=== PATIENT | male | born 1975 | race Caucasian/White ===

== ENCOUNTER 2017-05-09 19:44 | Emergency (ER) | payer OTHER ==
[~2017-05-09] VITALS: Ht 175.3 cm; Wt 71.8 kg
[~2017-05-09 19:44] MED LIST: BUPR8MIS SL; FLNIN NAE; IPRA1AER2 INH; LSN5 PO; NTRGSL/4 UT
[2017-05-09 19:46] VITALS: TEMP 36.6; Ht 175.3 cm; Wt 71.8 kg
[2017-05-09] MEDS ORDERED: DIPHTHERIA/TETANUS/PERTUSSIS 0.5 ML SYR/VIAL IM. ONE (20:00)
[2017-05-09] MEDS ORDERED: XYLOCAINE 1%/SOD BICARB 20 ML VIAL INFIL ONE (20:00)
[2017-05-09 20:38] VITALS: BP 137/100; PULSE 95; O2SAT 95
--- NOTE | 2017-05-11 14:18 | EMERGENCY ROOM VISIT NOTE ---
ED Visit Note First contact with patient: 19:50 CHIEF COMPLAINT: Wrist laceration HISTORY OF PRESENT ILLNESS: This 42-year-old male patient presents to the emergency department after cutting the outside of his right wrist about 2 hours ago. The patient states that he was taking apart a television when he cut himself on a piece of metal. The bleeding has stopped. Denies weakness or numbness of the hand or elbow. The patient rates the pain as dull and 6/10. The patient denies any other injuries. The patient's Tetanus shot is not up to date. REVIEW OF SYSTEMS: A 6 system review of systems was completed with positives and pertinent negatives listed in the HPI. ALLERGIES: Penicillin MEDICATIONS: See EMR PMH: See EMR SOCIAL HISTORY: Lives locally PHYSICAL EXAM: Vital Signs: Reviewed Nurse's notes, vital signs stable. GENERAL : White male, in no acute distress, well-developed, well-nourished. SKIN: There is a C-shaped 4.5 cm long laceration on the molar lateral aspect of the distal right wrist. The edges gape apart with traction. There is no foreign material in the wound and it looks clean. There is no bleeding. No deep structures such as tendons, bones, or significant blood vessels are seen in the base of the wound. Normal strength and movement of the hand and wrist. Capillary refill less than 2 seconds. Normal sensation to light and sharp touch. EMERGENCY DEPARTMENT COURSE: I examined the patient. Verbal consent was obtained to perform the procedure. Using sterile technique the wound was cleansed with Betadine. The area was sterilely draped. 4 ml of 1% buffered lidocaine was used to anesthetize the laceration on the right wrist. Once the patient was anesthetized, the wound was copiously irrigated under pressure with sterile saline. The wound was explored and was as described above. The laceration was repaired using 5 simple interrupted 4-0 nylon sutures with the wound edges being well approximated. The patient tolerated the procedure well. Hemostasis was achieved. The area was cleaned with sterile saline and dressed with bacitracin ointment and bandage. The patient was given Td immunization. The patient was discharged home in good condition. Of note, the patient requested narcotic pain medication several times for his injury. The patient has a long-standing history of drug abuse including IV heroin abuse. I explained to him that we would not be providing narcotic pain medication for straightforward lacerations, to which the patient replied "I'm going to buy some off the street then". I do not feel comfortable providing this patient narcotics, and feel that he should be placed on a no narcotic treatment plan. Problem List Medical Problems: (1) Anxiety State Nos Status: Chronic (2) Asthma, Unspecified Status: Chronic (3) Bipolar Disorder, Unspecified Status: Chronic (4) Chronic headache disorder Status: Chronic (5) Depressive Disorder Nec Status: Chronic (6) Head Injury, Nos Status: Chronic (7) Lumbago Status: Chronic (8) Polysubstance abuse Status: Resolved (9) Traumatic brain injury Status: Chronic (10) Traumatic Subdural Hem Status: Resolved Surgical Problems: (1) H/O craniotomy Status: Resolved Current/Historical Medications No Active Prescriptions or Reported Meds Allergies Coded Allergies: Penicillins (Verified Adverse Reaction, Unknown, nausea/vomiting, 05/09/17) Vital Signs Date Time Temp Pulse Resp B/P (MAP) Pulse Ox O2 Delivery O2 Flow Rate FiO2 05/09/17 20:38 95 18 137/100 95 05/09/17 19:46 36.6 98 20 138/93 95 Room Air Medications Administered Medications (Trade) Dose Ordered Sig/Krystyna Route Start Time Stop Time Status Last Admin Dose Admin Diphtheria/ Pertussis/Tetanus Vacc (Adacel Inj) 0.5 ml ONCE ONCE IM. 05/09/17 20:00 05/09/17 20:01 DC 05/09/17 20:00 0.5 ML Departure Information Impression Primary Impression: Laceration of wrist, right Dispostion Home / Self-Care Condition GOOD Prescriptions No Active Prescriptions or Reported Meds Referrals Sara Valverde.P. No Doctor, Assigned (PCP) Forms HOME CARE DOCUMENTATION FORM, IMPORTANT VISIT INFORMATION Patient Instructions My [facility] Additional Instructions Keep wound clean and dry. Do not allow any crusting or dried blood to accumulate on sutures. If this occurs, use a mild soap/water on a Q-tip to clean the wound. Do not use Peroxide to clean the wound as this can delay healing Use an antibiotic ointment like Bacitracin for 3-4 days, then let wound dry. You may bathe and shower as normal, but DO NOT SOAK the wound. Suture removal in about 12-14 days with your Family Doctor or in the ER. Return sooner for any signs of infection, increasing redness, swelling, or drainage.
== END 2017-05-09 20:40 | disposition home or self-care (01) ==
LOC: C.EDB 19:48 → C.EDD 20:40
DX: S61.511A Laceration without foreign body of right wrist, initial encounter (principal); W45.8XXA Other foreign body or object entering through skin, initial encounter; Y93.89 Activity, other specified; Y99.8 Other external cause status; J45.909 Unspecified asthma, uncomplicated; Z86.59 Personal history of other mental and behavioral disorders; Z87.820 Personal history of traumatic brain injury; Z98.890 Other specified postprocedural states; Z23 Encounter for immunization

== ENCOUNTER 2019-02-26 10:36 | Inpatient (IN) ==
--- OUTSIDE RECORDS SUMMARY | 2019-02-26 10:40 | External Medical Summary | Continuity of Care Document ---
:1975 Author Name Kojo Jones Address Unavailable Unavailable , Care Team Providers Name Role Phone Alf Anders III, M.D. Unavailable [email or web address] Unavailable [email or web address] Unavailable [email or web address] Thea Perez [email or web address] Unavailable [email or web address] Ballard M.D. Unavailable [email or web address] Herbert RODRIGUEZ M.D. Unavailable Unavailable Unavailable Unavailable Unavailable Problems Chronic kidney disease, stage II (mild) (585.2) (N18.2) Chronic rhinitis (472.0) (J31.0) TBI (traumatic brain injury) (854.00) (S06.9X9A) Chronic daily headache (784.0) (R51) BPH (benign prostatic hyperplasia) (600.00) (N40.0) Lymphadenopathy (785.6) (R59.1) Chronic laryngitis (476.0) (J37.0) Decreased urine volume (788.5) (R34) Subdural hematoma, post-traumatic (852.20) (S06.5X9A) Psychological disorder (300.9) (F99) Calculus of kidney (592.0) (N20.0) Hypertension (401.9) (I10) Emphysema lung (492.8) (J43.9) Congestive heart failure (428.0) (I50.9) Bronchitis (490) (J40) Arthritis (716.90) (M19.90) Drug dependence (304.90) (F19.20) Heart disease (429.9) (I51.9) Migraine headache (346.90) (G43.909) Agitation (307.9) (R45.1) ROLLY (acute kidney injury) (584.9) (N17.9) Acute respiratory failure (518.81) (J96.00) SAH (subarachnoid hemorrhage) (430) (I60.9) Dental caries (521.00) (K02.9) Deviated nasal septum (470) (J34.2) Nasal bone fx-closed (802.0) (S02.2XXA) Bipolar disorder (296.80) (F31.9) Allergies and Adverse Reactions Nortripytline HCl CAPS (Adverse Event) R eaction: Nausea, Vomiting Penicillins (Allergy) Medications Lisinopril 10 MG Oral Tablet; TAKE 1 TABLET DAILY. Refills: 0 Methadone HCl - 10 MG/ML Oral Concentrate; TAKE DIRECTED 130mg qd Refills: 0 Pantoprazole Sodium 40 MG Oral Tablet De layed Release; Take 1 tablet twice daily Karen Ballard Start: 09-Feb-2015 Quantity: 60 Refills: 9 Nystatin [id number] UNIT/ML Mouth/Throat Iqra pension; SWISH AND SWALLOW 5ML 4 TIMES DAILY. CANDI Shin Start: 09-Feb-2015 Quantity: 1 473 ML Bottle Refills: 0 ZOLMitriptan 5 MG Oral Tablet; TAKE 1 TA BLET AT ONSET OF HEADACHE, MAY REPEAT ONCE IN 2-4 HOURS. LIMIT TO 3 DAYS PER WEEK. CANDI Perez Start: 28-Mar-2015 Quantity: 9 Refills: 3 Xutfkdycib-TIRQ-Zxstniip 50-325-40 MG Or al Tablet; TAKE 1 OR 2 TABLETS BY MOUTH TWICE DAILY NEEDED FOR HEADACHE, NO MORE THAN 3 DAYS PER WEEK. Karen Anders III Start: 06-Mar-2015 Quantity: 20 Refills: 1 Topiramate 50 MG Oral Tablet; TAKE 2 TABLETS TWICE DAILY CANDI Singh Start: 06-Mar-2015 Quantity: 120 Refills: 3 Nitrostat 0.4 MG Sublingual Tablet Subli ngual; DISSOLVE 1 TABLET UNDER THE TONGUE NEEDED FOR CHEST PAIN. 25 Tablet Sublingual Bottle Quantity: 1 Refills: 11 Flomax 0.4 MG Oral Capsule; TAKE 1 CAPSULE Bedtime Refills: 0 Procedures History of Knee Surgery Status: Complete d History of Brain Surgery Status: Complet ed Immunizations Immunizations not documented Family History Mother No pertinent family history (V43.89) (Z78.9) Status: Active Social History - Smoking Status Current every day smoker Former smoker Plan of Treatment Planned Observations Planned Goals not documented Results No Known Results Results not documented Encounters Appointment; Telly Phoenix CRNP 22-Nov-2018 12:00 Encounter Diagnosis: Problem not documented
[2019-02-26] MEDS ORDERED: cephALEXin 250 MG CAP PO ONE (11:23)
--- NOTE | 2019-02-26 11:39 | Emergency Department Note ---
ED Visit Note I assisted Dr. Crook in the care of this patient. Please refer to his note for additional details. . Resident Activity Tracking Resident Involvement: Resident Care Provided Care Provided: Adult ED
[2019-02-26] MEDS ORDERED: XYLOCAINE 1%/SOD BICARB 20 ML VIAL INFIL ONE (11:55)
--- NOTE | 2019-02-26 12:03 | CT Scan Report ---
HEAD CT NONCONTRAST CT DOSE: 537.48 mGy.cm HISTORY: head injury TECHNIQUE: Multiaxial CT images of the head were performed without the use of intravenous contrast. A utomated exposure control was utilized for this study. A dose lowering technique was utilized adheri ng to the principles of ALARA. Comparison: Head CT 03/28/2013. Findings: The paranasal sinuses and mastoid air cells are clear. Focal right anterolateral skull frac ture along the coronal suture. This is in the region of the middle meningeal artery. This fracture de monstrates up to 2 mm of depression. There is associated mild scalp swelling at this location. No int racranial hemorrhage identified this time. There is no mass, midline shift, or acute infarct. The korey tricles and sulci are within normal limits. Impression: Slightly depressed right anterolateral skull fracture at the level of the coronal suture and middle m eningeal artery. No intracranial hemorrhage identified at this time. However, [address] f ollow-up is recommended given the location of the fracture. Electronically signed by: Ed Quinn M.D. 02/26/2019 12:02 PM
--- NOTE | 2019-02-26 14:39 | Emergency Department Note ---
Entered by Lily Slater acting as a scribe for History of Present Illness General Chief complaint: Laceration/Cut (Non-Suture) Stated complaint: HUGE LACERATION/GASH TO RT SIDE OF HEAD, FELL Time Seen by Provider: 02/26/19 10:55 Source: patient History of Present Illness Onset (ago): day(s) 3 Location: head Pain Consistency: + other (episode) Maximum Pain Intensity: 0 Quality: + other (laceration) Relieved By: not by other (cleaning out wound, lotion) The patient is a 44 year old male that is presenting to the Emergency Room with complaints of an episode of a laceration following a fall 3 days ago. The patient states that he bounced his head off some rocks. He denies using any alcohol or drugs prior to the episode. He states that he is unsure why he fell. He notes that he was unable to come to the ED right away because he did not have a ride here. He reports that he tried to treat the laceration with lotion and notes that he has been trying to scrub the area. He notes that the area was swollen following the fall. He states that he has no other complaints at this time. The patient is not answering all questions. His history is not forthcoming when asked about when the event occurred or what was happening when it occurred. Home Medications Home Medications Medication Instructions Recorded Confirmed Type naproxen sodium [Aleve] 220 mg PO Q12H PRN 02/26/19 02/26/19 History Allergies Allergy/AdvReac Type Severity Reaction Status Date / Time Penicillins AdvReac Unknown nausea/vomi Verified 02/26/19 11:22 ting Past Med/Surg History Medical History Mass of right side of neck (Acute) Methadone dependence (Acute) Family History Other No significant family history Social History marital status: Single Current Living Situation: Alone current occupational status: unemployed Feels Safe at Home: Yes Smoking Status: Current every day smoker Review of Systems See HPI for pertinent positives & negatives. and A total of 10 systems reviewed and were otherwise negative Physical Exam Vital Signs Vital Signs - 24 hr 02/26/19 10:40 02/26/19 12:37 02/26/19 13:24 Temperature 36.4 C L Temperature Source Oral Sepsis Recent Fever Within 48 Hours No Sepsis Action Taken by Nursing No Action Required Pulse Rate 114 H Pulse Rate [Right Finger] 99 H 101 H Respiratory Rate 20 20 20 Respiratory Effort / Characteristics Non-Labored Non-Labored Non-Labored Respiratory Depth Normal Normal Normal Respiratory Pattern Regular Regular Blood Pressure 108/62 Blood Pressure [Right Arm] 102/66 106/67 Blood Pressure Mean 77 Blood Pressure Mean [Right Arm] 78 80 Blood Pressure Position [Right Arm] Sitting Sitting Pulse Oximetry 98 98 98 Oxygen Delivery Method Room Air Room Air Room Air CONSTITUTIONAL/VITAL SIGNS: Reviewed / noted above. GENERAL: Non-toxic in appearance. INTEGUMENTARY: Warm, dry, and Owen. HEAD: Normocephalic. 14cm laceration to the right scalp, gaping approximately 3 cm with old blood. EYES: without scleral icterus or trauma. ENT/OROPHARYNX: clear and moist. LYMPHADENOPATHY/NECK: Is supple without lymphadenopathy or meningismus. RESPIRATORY: Lungs clear and equal. CARDIOVASCULAR: Regular rate and rhythm. GI/ABDOMEN: Soft and nontender. No organomegaly or pulsatile mass. No rebound or guarding. Normal bowel sounds. EXTREMITIES: Warm and well perfused. BACK: No CVA tenderness. NEUROLOGICAL: Intact without focal deficits. PSYCHIATRIC: normal affect. MUSCULOSKELETAL: Normally developed with good muscle tone. Course 1105:The patient was evaluated in room A09B. A complete history and physical examination was performed. 1230: Updated the patient on his current imaging results. I discussed the patients options for treatment at this time. The patient declines transfer to another facility. 1232: I discussed the patients case with Dr. Valverde, [facility], who recommended that I speak with a neurosurgeon. 1237: I discussed the patients case with Dr. Domingo, [facility] neurosurgery, who recommended contacting a plastic surgeon to evaluate the patient. 1243: I discussed the patients case with Dr. Null, [facility], who recommended the patient be taken to the operating room for further care of the fracture and laceration. 1250: I updated the patient on his treatment plan. He is amenable to the proposed treatment. The patient will be evaluated for surgery and further care. Consultations Consultation #1: I discussed the patients case with Dr. Valverde, [facility], who recommended that I speak with a neurosurgeon. Time: 12:32 Consultation #2: I discussed the patients case with Dr. Domingo, [facility] neurosurgery, who recommended contacting a plastic surgeon to evaluate the patient. Time: 12:37 Consultation #3: I discussed the patients case with Dr. Null, [facility], who recommended the patient be taken to the operating room for further care of the fracture and laceration. Time: 12:43 Administered Medications Discontinued Medications Cephalexin HCl (Keflex) 500 mg PO NOW ONE Stop: 02/26/19 11:24 Last Admin: 02/26/19 11:49 Dose: 500 mg Documented by: [id number] Lidocaine HCl (Buffered Lidocaine 1%) 20 ml INFIL NOW ONE Stop: 02/26/19 11:56 Last Admin: 02/26/19 12:01 Dose: 20 ml Documented by: [id number] Medical Decision Making Differential Diagnosis Differential includes acute cardiac dysrhythmia, microinfarction, CVA, TIA, dehydration, anemia, electrolyte disturbance, seizure, trauma, intracranial bleeding, acute vascular catastrophe, thoracic aortic dissection, PE, abdominal aortic aneurysm rupture. Medical Records Attestation: I reviewed the patient's medical records. Home Medications Current Medication List: was personally reviewed by me Imaging Data Radiologist's Impression: Radiology results as stated below per my review and the radiologist's interpretation: HEAD CT NONCONTRAST CT DOSE: 537.48 mGy.cm HISTORY: head injury TECHNIQUE: Multiaxial CT images of the head were performed without the use of intravenous contrast. Automated exposure control was utilized for this study. A dose lowering technique was utilized adhering to the principles of ALARA. Comparison: Head CT 03/28/2013. Findings: The paranasal sinuses and mastoid air cells are clear. Focal right anterolateral skull fracture along the coronal suture. This is in the region of the middle meningeal artery. This fracture demonstrates up to 2 mm of depression. There is associated mild scalp swelling at this location. No intracranial hemorrhage identified this time. There is no mass, midline shift, or acute infarct. The ventricles and sulci are within normal limits. Impression: Slightly depressed right anterolateral skull fracture at the level of the coronal suture and middle meningeal artery. No intracranial hemorrhage identified at this time. However, 12 [address] follow-up is recommended given the location of the fracture. Electronically signed by: dE Quinn M.D. 02/26/2019 12:02 PM Blood Pressure Blood Pressure Findings: Normal blood pressure MDM Narrative This is a 44-year-old male who presents to the ED with a chief complaint of a laceration to his right head. The patient states that his injury occurred when he fell on some rocks a few days ago. The patient is not forthcoming with the details of his injury. He does admit to using drugs. The patient otherwise denies any other symptoms. He came in to have it evaluated. He states that he did not have a ride to come in earlier. The patient's vital signs are stable. He is afebrile. His physical exam reveals a large laceration to the right temporal/parietal area and also the wound appears to be subacute. There is no active bleeding. There is dried blood in the area. A CT scan of the brain reveals a 2.4 mm depressed skull fracture. I spoke with both trauma surgery Dr. Valverde at [facility] as well as neurosurgeon, Dr. Edwards at [facility]. Neither physician felt the patient required transfer and that this could be fixed locally. There was no need for skull fracture repair. This just needs a surgeon to fix the wound, according to the neurosurgeon. He recommended the person, on-call for plastic surgery. The patient will be seen by Dr. Null for further evaluation and care. Impression & Plan Scalp laceration, Skull fracture Discharge Plan Visit Data Chief Complaint: Laceration/Cut (Non-Suture) Stated Complaint: HUGE LACERATION/GASH TO RT SIDE OF HEAD, FELL ED Provider: Rick Crook ED Midlevel Provider: Jc June Discharge Problem: Scalp laceration, Skull fracture Patient Disposition: Being Evaluated by Surgeon Forms Stand Alone Forms: [employer] Prescriptions Prescriptions: No Action naproxen sodium [Aleve] 220 mg Tablet 220 mg PO Q12H PRN (Reason: Headache) RF: 0 Referrals Referrals: PCP,NO [Primary Care Provider] - Discharge Problem: Scalp laceration Qualifiers: Encounter type: initial encounter Qualified Code(s): S01.01XA - Laceration without foreign body of scalp, initial encounter Skull fracture Qualifiers: Encounter type: initial encounter Skull bone/location: parietal bone Fracture type: closed Qualified Code(s): S02.0XXA - Fracture of vault of skull, initial encounter for closed fracture The scribe's documentation has been prepared under my direction and personally reviewed by me in its entirety. I confirm that the note above accurately reflects all work, treatment, procedures, and medical decision making performed by me.
--- NOTE | 2019-02-26 15:05 | History & Physical Report ---
Date of Service February 26, 2019 History of Present Illness Primary Care Provider: NO PCP Allergies Allergy/AdvReac Type Severity Reaction Status Date / Time Penicillins AdvReac Unknown nausea/vomi Verified 02/26/19 11:22 ting Home Medications Home Medications Medication Instructions Recorded Confirmed Type naproxen sodium [Aleve] 220 mg PO Q12H PRN 02/26/19 02/26/19 History Past Med/Surg History Medical History Mass of right side of neck (Acute) Methadone dependence (Acute) Family History Other No significant family history Social History marital status: Single Current Living Situation: Alone current occupational status: unemployed Feels Safe at Home: Yes Smoking Status: Current every day smoker Review of Systems Review of Systems: Unobtainable due to cognitive status Physical Exam Physical Exam: Poor historian--states he slipped and hit temporal area --at least a 5-6 inch laceration (deep) it has devital tissue on the wound line. pus is developing under the raised flaps. Exposed periostium noted, I will need to debride the flap, control bleeding inspect the bone and close. This will be done in OR with GA given the extent of the wound. The CT was evaluated--see report=depressed fractures noted with innner table fx as well, no air or blood with in skull--It was suggested that we get another CT in 12-24 hr--I will order CT pre-op in AM. ED physician discussed with Neuro at [facility]--no need for transfer suggested repeat CT in 12-24 hrs. PLAN-I will admit, Get hospitalist consult to help with management and IV`s order CT in AM, NPO midnight, antibiotics, labs monitoring, Patient is suspected for drug use we will obtain drug screen. Discussed case with Ms Harden and Anesthesia dept. Constitutional: + thin, + behavioral limitations, + disheveled and + lethargic Eyes: PERRL, conjunctivae normal, anicteric sclerae ENMT: external ear and nose normal, oropharynx normal Nose: + external nose abnormality and + septum abnormality Mouth: + dry oral mucous membranes Mallampati Class: II Neck: trachea midline, no thyromegaly normal visual inspection and trachea midline Respiratory: normal respiratory effort, lungs clear to auscultation Auscultation: lungs clear to auscultation bilaterally Cardiovascular: RRR, no murmur, no edema Rate/Rhythm: regular rate Musculoskeletal: no cyanosis or clubbing, extremities motor strength 5/5 Head/Neck/Chest: + head abnormal to inspection and + scalp tenderness Spine: normal cervical lordosis Extremities: extremities normal to inspection Gait: normal gait Shoulder: + shoulder abnormal to inspection Hip: + hip abnormal to inpsection Knee: + knee abnormal to inspection Skin: + wound Trauma: + evidence of skin trauma, + laceration, + hematoma and + periorbital ecchymosis Neurologic: CN's II-XI intact bilaterally and + confused Speech / Cognition: + abnormal cognition Psychiatric: Apperance: + disheveled Eye Contact: + fair eye contact Affect: + depressed affect Mood: + depressed mood Estimated Intelligence: + below average estimated intelligence Judgement: + poor judgement Results & Data Vital Signs (Past 12 Hours) Vital Signs Temp Pulse Pulse Resp BP BP Pulse Ox 02/26/19 14:47 101 H 20 103/61 98 02/26/19 14:00 101 H 20 98 02/26/19 13:24 101 H 20 106/67 98 02/26/19 12:37 99 H 20 102/66 98 02/26/19 10:40 36.4 C L 114 H 20 108/62 98
--- NOTE | 2019-02-26 15:23 | Consultation ---
Date of Consultation February 26, 2019 Assessment & Plan (1) Scalp laceration: Scalp Laceration Skull Fracture Traumatic head Injury Secondary to fall as per patient CT Head:Slightly depressed right anterolateral skull fracture at the level of the coronal suture and middle meningeal artery. No intracranial hemorrhage identified at this time. However, 12 to [address] follow-up is recommended given the location of the fracture. --Planned for wound debridement tomorrow Blood/Wound Cx --Start on Vancomycin Wound Care, DVT Px, Pain control as per Primary Team Agree with IV fluids Altered Mental Status H/O substance abuse as per records CT head as above Neuro Checks 1:1 Obtain Urine drug screen Avoid Narcotic meds as able H/O Asthma, bipolar disorder As per records Continue home inhaler Nebs PRN Please confirm patient's home meds when more awake Tobacco use disorder Fruit Cutter to quit smoking DVT Px: SCDs for now Code Status: Full Code Disposition: As per Primary Team Dr. Fidel Hsieh will resume patient's care starting 02/27/19. Thank you for the consultation. Please call with any questions History of Present Illness Requesting Physician: Dr.Barry Null Reason for Consultation: Management of antibiotics Attending Physician: Dr.Barry Null History of Present Illness Patient is a 44-year-old male with history of asthma, bipolar disorder, tobacco use disorder, traumatic brain injury as per records and other problems was admitted by Dr. Herb Null for management of scalp laceration of the temporal region. Patient is lethargic while in ED and was unable to provide any much history currently. As per the records, patient had slipped and hit his temporal region on resulting in 5 to 6 inch deep laceration of the scalp at the temporal region. Patient complains of pain at the site of scalp laceration. Denies any chest pain, shortness of breath, dizziness, nausea vomiting and abdominal pain. Patient's CT head showed slightly depressed right anterolateral skull fracture at the level of the coronal suture and middle meningeal artery. No intracranial hemorrhage was noted. Also no mass, midline shift or acute infarct noted. ER physician Dr. Crook discussed with trauma surgery at [facility] as well as neurosurgeon, Dr. Edwards at [facility], with the physicians felt that the patient does not need any neurosurgical intervention and needs local wound care. Patient is planned for wound debridement tomorrow. Allergies Allergy/AdvReac Type Severity Reaction Status Date / Time Penicillins AdvReac Unknown nausea/vomi Verified 02/26/19 11:22 ting Home Medications Home Medications Medication Instructions Recorded Confirmed Type budesonide-formoterol [Symbicort] 2 puff INHALATION BID 02/26/19 02/26/19 History naproxen sodium [Aleve] 220 mg PO Q12H PRN 02/26/19 02/26/19 History Patient History Medical History Mass of right side of neck (Acute) Methadone dependence (Acute) Asthma Bipolar disorder Family History Other No significant family history Social History Preferred Language: Chinese Communication Ability: Impaired Communication Ability Comment: Patient states blurred vision makes it hard for him to read. Logistics Specialist Required: No Beliefs That Will Affect Care: None marital status: Single Current Living Situation: Alone current occupational status: unemployed Other Information That Helps Us Care for You: No Feels Safe at Home: No Is there a partner from a previous relationship who is making you feel unsafe now?: No Any Concerns about Your Family Situation: No Would You Like to Speak to Someone About Your Situation: No Safety Concerns: Feels Safe At This Time Smoking Status: Current some day smoker Tobacco Type: cigarettes Do You Dip or Chew Tobacco: Yes Hx Alcohol Use: Yes Alcohol type: hard liquor Hx Substance Use: Yes substance use type: marijuana Substance Use Type Other:: Patient states, "Whatever I can get my hands on." Last Used Substance: Unknown Review of Systems Review of Systems: Difficult to obtain as patient is lethargic Physical Exam Physical Exam: Physical Exam: Vitals signs as noted above General Appearance:Moderately built and nourished, Lethargic, no apparent distress Head: normocephalic, traumatic, +Scalp laceration Eyes: normal inspection, EOMI Neck: supple, Trachea midline Respiratory/Chest: Normal breath sounds, CTA Cardiovascular: S1, S2, No murmur Abdomen/GI:Soft, Non tender, Bowel sounds present Extremities/Musculoskelatal:normal inspection, no edema Neurologic/Psych:lethargic, grossly no focal neurological deficits Skin: normal color, warm Results & Data Vital Signs (Past 12 Hours) Vital Signs Temp Pulse Pulse Resp BP BP Pulse Ox 02/26/19 14:47 101 H 20 103/61 98 02/26/19 14:00 101 H 20 98 02/26/19 13:24 101 H 20 106/67 98 02/26/19 12:37 99 H 20 102/66 98 02/26/19 10:40 36.4 C L 114 H 20 108/62 98 Laboratory Results BMP 02/26/19 18:47 Creatinine 1.[address] Head: Slightly depressed right anterolateral skull fracture at the level of the coronal suture and middle meningeal artery. No intracranial hemorrhage identified at this time. However, 12 to [address] follow-up is recommended given the location of the fracture. (1) Scalp laceration Encounter type: initial encounter Qualified Code(s): S01.01XA - Laceration without foreign body of scalp, initial encounter
--- NOTE | 2019-02-26 15:36 | Surgery Progress Note ---
Date of Service Please insure that the CT scan is completed early Thursday AM -before surgery Consult Hospitalist (done) NPO at midnight --OR tomorrow AM. February 26, 2019 Results & Data Vital Signs (Past 12 Hours) Vital Signs Temp Pulse Pulse Resp BP BP Pulse Ox 02/26/19 14:47 101 H 20 103/61 98 02/26/19 14:00 101 H 20 98 02/26/19 13:24 101 H 20 106/67 98 02/26/19 12:37 99 H 20 102/66 98 02/26/19 10:40 36.4 C L 114 H 20 108/62 98
[2019-02-26] MEDS ORDERED: VANCOMYCIN CONSULT ACTIVE PRN (17:43)
[2019-02-26] MEDS ORDERED: VANCOMYCIN HCL 1,500 MG in SODIUM CHLORIDE 0.9% 500 ML IV ONE (17:45)
[2019-02-26] MEDS: LACTATED RINGER'S 1,000 ML IV SCH (17:49)
[2019-02-26 19:20] LABS: Creatinine Clr Calc Pharmacy 79.3 ml/min; Est GFR (African American) 89.2
[2019-02-26] MEDS ORDERED: LEVALBUTEROL HCL 0.63 MG/3 ML NEB NEB PRN (19:50)
[2019-02-26] MEDS ORDERED: POLYETHYLENE (MIRALAX) 17 GM PACK PO PRN (19:57)
[2019-02-26] MEDS ORDERED: ONDANSETRON INJ 2 MG/ML 2 ML VIAL IV PRN (19:57)
[2019-02-26] MEDS ORDERED: PNEUMOCOCCAL POLYSACCHARIDES 25 MCG/0.5 ML VIAL/SYR IM ONE (20:45)
[2019-02-26] MEDS ORDERED: PNEUMOCOCCAL ADMINISTRATION CHARGE ONE (20:45)
[2019-02-26] MEDS: BUDESONIDE/FORMOTEROL FUMARATE 160/4.5 60 PUFFS/INHALER INH SCH (22:06)
--- NOTE | 2019-02-26 22:14 | Pharmacy Report ---
Pharmacy Abx Initial Consult - Date of Service February 26, 2019 - Pharmacy Dosing Scope Date of Consult: 7-6 Consultation requested by: Dr. Hair Pharmacy is consulted to initiate vancomycin dosing therapy, order appropriate labs and adjust drug dose/frequency. - Subjective The patient is a 44 year old M admitted on 02/26/19 15:23. - Objective Height: 5 ft 9.02 in Weight: 68.4 kg Lab Results (24hrs): Laboratory Tests (24 Hours) 02/26/19 18:47 Creatinine 1.15 Est Cr Clr Drug Dosing 79.3 Micro Results: 02/26/19 18:45 Gram Stain - Pending Scalp Wound Culture - Pending 02/26/19 17:18 Aerobic Blood Culture - Pending Blood Anaerobic Blood Culture - Pending 02/26/19 17:42 Aerobic Blood Culture - Pending Blood Anaerobic Blood Culture - Pending - Assessment & Plan Assessment 44 year old M with traumatic head injury. Planned for wound debridement tomorrow. Started on vancomycin for concern of infection. Vancomycin: * 1500 mg x 1 given as loading dose (~22 mg/kg) * Will start vancomycin 1250 mg (~18 mg/kg) q 12 hrs to achieve estimated trough ~15-20 mcg/ml * Estimated kinetics: t1/2~10 hr, ke~0.069 hr-1, CrCl ~79 ml/min * Will follow and order trough level if continued >48 hrs Pharmacy will continue to follow and will adjust dose/frequency as necessary. Thank you.
[2019-02-27] MEDS: ACETAMINOPHEN 1,000 MG/100 ML VIAL IV PRN ×2 (00:27→20:20)
[2019-02-27 02:16] LABS: Amphetamines+Metham, Urine Pos (Neg); Barbiturates, Urine Neg (Neg); Benzodiazepine, Urine Neg (Neg); Cocaine, Urine Neg (Neg); MDMA (Ecstacy), Urine Pos (Neg); Methadone, Urine Neg (Neg); Opiate, Urine Neg (Neg); Phencyclidine, Urine Neg (Neg)
[2019-02-27 05:53] LABS: Basophils # (auto) 0.03 K/uL (0-0.2); Basophils % (auto) 0.5 %; Eosinophils # (auto) 0.39 K/uL (0-0.5); Eosinophils % (auto) 6.9 %; Hematocrit (blood only) 39.8 % (42-52); Hemoglobin 13.9 g/dL (14.0-18.0); Immature Granulocytes # (auto) 0.01 K/uL (0.00-0.02); Immature Granulocytes % (auto) 0.2 %; Lymphocytes # (auto) 2.57 K/uL (1.2-3.4); Lymphocytes % (auto) 45.5 %; Mean Corpuscular Hgb Conc 34.9 g/dL (32-36); Mean Corpuscular Volume 89.4 fL (80-100); Mean Platelet Volume 11.7 fL (7.4-10.4); Monocytes # (auto) 0.46 K/uL (0.11-0.59); Monocytes % (auto) 8.1 %; Neutrophils # (auto) 2.19 K/uL (1.4-6.5); Neutrophils % (auto) 38.8 %; Platelet Count 231 K/uL (130-400); RDW Coefficient of Variation 13.9 % (11.5-14.5); RDW Standard Deviation 46.1 fL (36.4-46.3); Red Blood Count 4.45 M/uL (4.7-6.1); White Blood Count 5.65 K/uL (4.8-10.8)
[2019-02-27 06:24] LABS: Albumin Level 3.5 gm/dl (3.4-5.0); Calcium 8.6 mg/dl (8.5-10.1); Creatinine Clr Calc Pharmacy 87.7 ml/min; Est GFR (African American) 100.7; Est GFR (Non-African American) 86.9; Magnesium 2.2 mg/dl (1.8-2.4); Potassium 3.8 mmol/L (3.5-5.1)
[2019-02-27 06:30] LABS: Albumin Globulin Ratio 1.1 (0.9-2); Bilirubin,Total 0.7 mg/dl (0.2-1); Globulin 3.3 gm/dl (2.5-4.0); Total Protein 6.8 gm/dl (6.4-8.2)
--- NOTE | 2019-02-27 07:13 | CT Scan Report ---
CT head/brain wo con CLINICAL HISTORY: 44 years-old Male with need 12-[address] as suggested for f/up. Acute right -sided head injury with right anterolateral skull fracture at the level of the coronal suture TECHNIQUE: Multiple axial CT images of the head were obtained without contrast. A dose lowering tech nique was utilized adhering to the principles of ALARA. CT DOSE: 537.48 mGy.cm COMPARISON: Head CT 02/26/2019.. FINDINGS: No acute intracranial hemorrhage, midline shift, intracranial mass, hydrocephalus, territorial ischem ia or abnormal extra-axial collection. There is an acute minimally depressed fracture about the right anterolateral skull at the level of th e coronal suture with 2 mm depression and mild comminution, unchanged. Mild adjacent subcutaneous mushtaq ma near the fracture site. Mild mucosal thickening about the ethmoid air cells. Mastoid air cells ar e clear. Possible punctate foreign bodies are noted about the scalp adjacent to the laceration. IMPRESSION: Acute mildly depressed and comminuted fracture of the right anterolateral skull at the l evel of the coronal suture redemonstrated. No acute intracranial hemorrhage identified. The above report was generated using voice recognition software. It may contain grammatical, syntax o r spelling errors. Electronically signed by: Humberto Morfin M.D. 02/27/2019 7:12 AM
[2019-02-27] MEDS: KETOROLAC TROMETHAMINE 15 MG/ML VIAL IV PRN ×2 (07:16→15:56)
[2019-02-27] MEDS ORDERED: SUCCINYLCHOLINE CHLORIDE 20 MG/ML 10 ML VIAL ONE (07:20)
[2019-02-27] MEDS ORDERED: LIDOCAINE HCL 2% 2 ML VIAL/AMP(20MG/ML) INFIL ONE (07:20)
[2019-02-27] MEDS ORDERED: ONDANSETRON INJ 2 MG/ML 2 ML VIAL ONE (07:20)
[2019-02-27] MEDS ORDERED: PROPOFOL IV EMULSION 10 MG/ML 20 ML VIAL IV ONE (07:20)
[2019-02-27] MEDS ORDERED: fentaNYL citrate 100 MCG/2 ML VIAL ONE (07:30)
[2019-02-27] MEDS ORDERED: ePHEDrine sulfate 50 MG/ML AMP IV PRN (07:34)
[2019-02-27] MEDS ORDERED: ONDANSETRON INJ 2 MG/ML 2 ML VIAL IV PRN (07:34)
[2019-02-27] MEDS ORDERED: HYDROmorphone INJ 1 MG/ML SYRINGE IV PRN (07:34)
[2019-02-27] MEDS ORDERED: ATROPINE SULFATE 0.1 MG/ML 10ML SYR IV PRN (07:34)
[2019-02-27] MEDS ORDERED: fentaNYL citrate 100 MCG/2 ML VIAL IV PRN (07:34)
--- NOTE | 2019-02-27 07:45 | Anesthesiology Consultation ---
Date of Service February 27, 2019 Assessment & Plan (1) Encounter for pre-operative examination: Chart Review Chart Review: Acceptable Risk for Surgery and Patient NOT seen in Pre Admission Testing Consults Requested none History Surgery Operation Date: 02/27/19 09:30 Proposed Procedures p Suturing Facial Lacerations - Herb Null, DMD Height/Weight Height: 5 ft 9.02 in Weight: 68.4 kg Allergies Allergy/AdvReac Type Severity Reaction Status Date / Time Penicillins AdvReac Unknown nausea/vomi Verified 02/26/19 11:22 ting Medications Home Medications Medication Instructions Recorded Confirmed Last Taken budesonide-formoterol [Symbicort] 2 puff INHALATION BID 02/26/19 02/26/19 Unknown naproxen sodium [Aleve] 220 mg PO Q12H PRN 02/26/19 02/26/19 02/26/19 Active Medications Generic Name Dose Route Start Last Admin Trade Name Freq PRN Reason Stop Dose Admin Budesonide/Formoterol Fumarate 2 puffs 02/26/19 21:00 02/26/19 22:06 Symbicort 160mcg/4.5mcg INH 03/28/19 20:59 2 puffs BID NEELIMA Administration Lactated Ringer's 1,000 mls @ 100 mls/hr 02/26/19 15:30 02/26/19 22:15 Lr IV 03/28/19 15:29 100 mls/hr .Q10H NEELIMA Infusion Acetaminophen 1,000 mg in 100 mls @ 400 mls/hr 02/26/19 19:56 02/27/19 00:42 Ofirmev IV 03/28/19 19:55 Infused Q8H PRN Infusion Pain or Fever Ketorolac Tromethamine 15 mg 02/27/19 06:37 02/27/19 07:16 Toradol IV 03/04/19 06:36 15 mg Q6H PRN Administration Pain NPO Date Last Intake of Fluids: 02/26/19 Time Last Intake of Fluids: 23:59 Date Last Intake of Solids: 02/26/19 Time Last Intake of Solids: 23:59 Past Medical History Medical History Mass of right side of neck (Acute) Methadone dependence (Acute) Asthma Bipolar disorder Exercise / Class Metabolic Activity II 4-5 Yardwork/Stairs/Walk up hill Past Family History Family History Other No significant family history Past Anesthesia History No Hx of Anesthesia Complications and No Family Hx of Anesthesia Complications History of PONV No Hx of PONV and No Hx of Motion Sickness Social History Smoking Status: Current some day smoker tobacco type: cigarettes Do You Dip or Chew Tobacco: Yes Hx Alcohol Use: Yes Alcohol type: hard liquor alcohol intake frequency: a few times a month Hx Substance Use: Yes substance use type: marijuana Substance Use Type Other:: Patient states, "Whatever I can get my hands on." Last Used Substance: Unknown Physical Exam Vital Signs Last Vital Signs Temp 36.5 C 02/27/19 07:08 Pulse 70 02/27/19 07:08 Resp 18 02/27/19 07:08 BP 124/79 02/27/19 07:08 Pulse Ox 99 02/27/19 07:08 Testing Laboratory Results 02/27/19 05:15 02/27/19 05:15 02/26/19 18:45 Gram Stain - Final Scalp Other Testing CT head/brain wo con 02/27/2019 CLINICAL HISTORY: 44 years-old Male with need 12-[address] as suggested for f/up. Acute right-sided head injury with right anterolateral skull fracture at the level of the coronal suture TECHNIQUE: Multiple axial CT images of the head were obtained without contrast. A dose lowering technique was utilized adhering to the principles of ALARA. CT DOSE: 537.48 mGy.cm COMPARISON: Head CT 02/26/2019.. FINDINGS: No acute intracranial hemorrhage, midline shift, intracranial mass, hydrocephalus, territorial ischemia or abnormal extra-axial collection. There is an acute minimally depressed fracture about the right anterolateral skull at the level of the coronal suture with 2 mm depression and mild comminution, unchanged. Mild adjacent subcutaneous edema near the fracture site. Mild mucosal thickening about the ethmoid air cells. Mastoid air cells are clear. Possible punctate foreign bodies are noted about the scalp adjacent to the laceration. IMPRESSION: Acute mildly depressed and comminuted fracture of the right anterolateral skull at the level of the coronal suture redemonstrated. No acute intracranial hemorrhage identified.
--- NOTE | 2019-02-27 07:56 | History & Physical Bridge Note ---
Date of Service February 27, 2019 Reviewed toxicology screen and positive results with anesthesia. Consent signed reviewed surgery Plan surgery today New CT no bleed or changes Plan OR now History & Physical Bridge Note I have examined the patient, reviewed the History & Physical and in the interval since the performance of the History & Physical I have noted the following changes of clinical significance: no changes noted
[2019-02-27] MEDS ORDERED: LIDOCAINE/EPINEPHRINE 1% 20 ML VIAL ONE (07:58)
[2019-02-27] MEDS ORDERED: ACETAMINOPHEN 1000 MG/100 ML IV IV ONE (08:15)
[2019-02-27] MEDS ORDERED: NEOMYCIN/POLYMYX/BACITR OINT 15 GM TUBE ONE (09:00)
--- NOTE | 2019-02-27 09:08 | Post Operative Brief Note ---
Immediate Post Op Note v1 Date of Surgery February 27, 2019 Pre & Post Diagnosis Operation Date: 02/27/19 09:30 Pre-Op Diagnosis: Complex scalp laceration right side 6 inches Post-Op Diagnosis: Complex scalp laceration right side 6 inches Procedure Operation Date: 02/27/19 09:30 Actual Procedures p Debridement and closure of complex scalp laceration right scalp(Right) 6 inches - Herb Null DMD Surgeon Herb Null DMD Pleater none Estimated Blood Loss 20 Findings Consistent with Post-Op Diagnosis
[2019-02-27] MEDS: VANCOMYCIN HCL 1,250 MG in SODIUM CHLORIDE 0.9% 250 ML IV SCH ×2 (10:50→20:40)
[2019-02-27] MEDS: BUDESONIDE/FORMOTEROL FUMARATE 160/4.5 60 PUFFS/INHALER INH SCH ×3 (10:50→20:45)
[2019-02-27] MEDS: LACTATED RINGER'S 1,000 ML IV SCH (10:53)
--- NOTE | 2019-02-27 11:17 | Anesthesiology Progress Note ---
Date of Service February 27, 2019 Anesthesia Post Procedure Vital Signs Vital Signs: Temp Pulse Pulse Resp BP Pulse Ox Pulse Ox 02/27/19 11:12 93 H 18 137/77 98 02/27/19 10:45 86 16 114/69 96 02/27/19 10:15 36.3 C L 78 18 122/80 100 02/27/19 10:05 82 15 125/82 98 02/27/19 09:55 36.2 C L 90 16 130/75 95 02/27/19 09:45 93 H 15 120/82 98 02/27/19 09:35 93 H 16 127/83 94 02/27/19 09:25 76 15 124/81 100 02/27/19 09:15 36.3 C L 81 16 112/74 100 02/27/19 07:08 36.5 C 70 18 124/79 99 02/27/19 00:05 92 02/26/19 23:11 36.4 C L 88 16 120/78 92 02/26/19 17:10 35.9 C L 83 16 128/88 99 02/26/19 15:53 85 20 124/82 98 02/26/19 14:47 101 H 20 103/61 98 02/26/19 14:00 101 H 20 98 02/26/19 13:24 101 H 20 106/67 98 02/26/19 12:37 99 H 20 102/66 98 Pain Intensity Head: Pain Intensity: 2 Transfer of Care Handoff Completed per policy Notes Mental Status: alert / awake / arousable and participated in evaluation Patient Amnestic to Procedure: Yes Nausea / Vomiting: adequately controlled Pain: adequately controlled Airway Patency, RR, SpO2: stable & adequate BP & HR: stable & adequate Hydration State: stable & adequate Anesthetic Complications: no major complications apparent and Pt Satisfied with anesthetic care
[2019-02-27] MEDS: NICOTINE 21 MG/24 HR TDSY TD SCH (13:29)
--- NOTE | 2019-02-27 15:01 | Hospitalist Progress Note ---
Date of Service February 27, 2019 Assessment & Plan (1) Scalp laceration: Scalp laceration debrided by Dr. Null. Wound culture growing coagulase-negative Staphylococcus. Receiving vancomycin. Need to confirm when last tetanus booster administered. (2) Skull fracture: ED provider discussed case with Neurosurgery. No need for surgical intervention. No intracranial hemorrhage on repeat CT. (3) Smoking: Nicotine patch ordered. Smoking cessation counseling. (4) Abnormal toxicological findings: Preliminary urine tox screen positive for amphetamines and MDMA. Confirmation pending. (5) DVT prophylaxis: SCD's. Ambulate. (6) Encounter for consultation: Thank you for this consultation. We will follow the patient with you during their hospital stay. My cell # is [phone]. You can reach a member of the [facility] Medicine Team 16/03 via pager @ [phone]. Subjective Recheck for medical management. Patient was seen in his room around 1430. Scalp laceration debrided earlier today by Dr. Null. Patient continues to have a headache. No diplopia. No nausea or vomiting. No chest pain, cough, shortness of breath. He would like to smoke. Physical Exam Constitutional: no acute distress Eyes: PERRL and EOM intact bilaterally Neck: trachea midline, no thyromegaly Respiratory: no respiratory distress Auscultation: lungs clear to auscultation bilaterally Cardiovascular: Rate/Rhythm: regular rate and regular rhythm Vessels: no JVD Extremities: no calf tenderness and no edema Gastrointestinal (Abdomen): normal bowel sounds, soft, nontender, no hepatosplenomegaly Musculoskeletal: Head/Neck/Chest: + head abnormal to inspection (bandaged) Skin: no rashes, warm and dry Psychiatric: Orientation: alert and oriented x 3 Results & Data Vital Signs (Past 12 Hours) Vital Signs Temp Pulse Pulse Resp BP Pulse Ox 02/27/19 13:14 36.5 C 82 15 115/67 95 02/27/19 12:11 80 18 111/65 96 02/27/19 11:12 93 H 18 137/77 98 02/27/19 10:45 86 16 114/69 96 02/27/19 10:15 36.3 C L 78 18 122/80 100 02/27/19 10:05 82 15 125/82 98 02/27/19 09:55 36.2 C L 90 16 130/75 95 02/27/19 09:45 93 H 15 120/82 98 02/27/19 09:35 93 H 16 127/83 94 02/27/19 09:25 76 15 124/81 100 02/27/19 09:15 36.3 C L 81 16 112/74 100 02/27/19 07:08 36.5 C 70 18 124/79 99 Laboratory Results Laboratory Results - last 24 hr 02/26/19 02/27/19 02/27/19 18:47 01:30 01:30 WBC RBC Hgb Hct MCV MCH MCHC RDW Std Deviation RDW Coeff of [place] Plt Count MPV Immature Gran % (Auto) Neut % (Auto) Lymph % (Auto) [place] % (Auto) Eos % (Auto) Baso % (Auto) Immature Gran # (Auto) Neut # (Auto) Lymph # (Auto) [place] # (Auto) Eos # (Auto) Baso # (Auto) Sodium Potassium Chloride Carbon Dioxide Anion Gap BUN Creatinine 1.15 Est Cr Clr Drug Dosing 79.3 Est GFR ( Amer) 89.2 Est GFR (Non-Af Amer) 77.0 BUN/Creatinine Ratio Glucose Calcium Magnesium Total Bilirubin AST ALT Alkaline Phosphatase Total Protein Albumin Globulin Albumin/Globulin Ratio Urine Opiates Screen Neg Ur Methadone, Qual Neg Urine Barbiturates Neg Ur Phencyclidine (PCP) Neg U Amphetamines Confirm Pending U Amphetamin/Meth Scrn Pos H U Methamphetamin Confrm Pending MDMA (Ecstasy) Screen Pos H U MDMA (Ecstasy), Quant U Benzodiazepines Scrn Neg Ur Cocaine Metabolite Neg U Marijuana (THC) Screen Neg 02/27/19 02/27/19 02/27/19 01:30 05:15 05:15 WBC 5.65 RBC 4.45 L Hgb 13.9 L Hct 39.8 L MCV 89.4 MCH 31.2 MCHC 34.9 RDW Std Deviation 46.1 RDW Coeff of [place] 13.9 Plt Count 231 MPV 11.7 H Immature Gran % (Auto) 0.2 Neut % (Auto) 38.8 Lymph % (Auto) 45.5 [place] % (Auto) 8.1 Eos % (Auto) 6.9 Baso % (Auto) 0.5 Immature Gran # (Auto) 0.01 Neut # (Auto) 2.19 Lymph # (Auto) 2.57 [place] # (Auto) 0.46 Eos # (Auto) 0.39 Baso # (Auto) 0.03 Sodium 138 Potassium 3.8 Chloride 105 Carbon Dioxide 28 Anion Gap 5.0 BUN 13 Creatinine 1.04 Est Cr Clr Drug Dosing 87.7 Est GFR ( Amer) 100.7 Est GFR (Non-Af Amer) 86.9 BUN/Creatinine Ratio 13.0 Glucose 76 Calcium 8.6 Magnesium 2.2 Total Bilirubin 0.7 AST 13 L ALT 22 Alkaline Phosphatase 73 Total Protein 6.8 Albumin 3.5 Globulin 3.3 Albumin/Globulin Ratio 1.1 Urine Opiates Screen Ur Methadone, Qual Urine Barbiturates Ur Phencyclidine (PCP) U Amphetamines Confirm U Amphetamin/Meth Scrn U Methamphetamin Confrm MDMA (Ecstasy) Screen U MDMA (Ecstasy), Quant Pending U Benzodiazepines Scrn Ur Cocaine Metabolite U Marijuana (THC) Screen Diagnostic Findings CT HEAD IMPRESSION: Acute mildly depressed and comminuted fracture of the right anterolateral skull at the level of the coronal suture redemonstrated. No acute intracranial hemorrhage identified. The above report was generated using voice recognition software. It may contain grammatical, syntax or spelling errors. Electronically signed by: Humberto Morfin M.D. 02/27/2019 7:12 AM (1) Scalp laceration Encounter type: initial encounter Qualified Code(s): S01.01XA - Laceration without foreign body of scalp, initial encounter (2) Skull fracture Encounter type: initial encounter Fracture type: closed Skull bone/location: parietal bone Qualified Code(s): S02.0XXA - Fracture of vault of skull, initial encounter for closed fracture
[2019-02-28] MEDS ORDERED: VANCOMYCIN TROUGH ONE (07:30)
[2019-02-28] MEDS: KETOROLAC TROMETHAMINE 15 MG/ML VIAL IV PRN (07:38)
[2019-02-28 08:01] LABS: Creatinine Clr Calc Pharmacy 90.3 ml/min; Est GFR (African American) 104.4
[2019-02-28] MEDS: NICOTINE 21 MG/24 HR TDSY TD SCH (09:02)
[2019-02-28] MEDS: BUDESONIDE/FORMOTEROL FUMARATE 160/4.5 60 PUFFS/INHALER INH SCH (09:02)
[2019-02-28] MEDS: VANCOMYCIN HCL 1,250 MG in SODIUM CHLORIDE 0.9% 250 ML IV SCH (09:11)
--- NOTE | 2019-02-28 10:11 | Operative Report ---
DATE OF OPERATION: 02/27/2019 ADMITTING DIAGNOSIS: A 6-7 inch complex laceration of temporoparietal area of the scalp. POSTOPERATIVE DIAGNOSIS: A 6-7 inch complex laceration of temporoparietal area of the scalp. PROCEDURE: Plastic surgical repair of extensive deep laceration involving the temporoparietal area secondary to a fall which occurred approximately 5-7 days ago. Debridement of the wound and evacuation of hematoma and early infection. DESCRIPTION OF PROCEDURE: After this patient was cleared to undergo general anesthesia, he was brought down to the operating room and placed under general anesthesia via an orotracheal intubation. After adequate anesthesia was obtained, the patient was prepped and draped in the usual manner for secondary repair of a potentially infected laceration of the temporoparietal area, which occurred approximately 5-7 days ago. The patient's history is somewhat sketchy as to the type of mechanics that caused the injury. He is unsure when the injury occurred and he cannot remember if he slipped and fell off his truck and hit the tail gate or he fell off a ladder. Nevertheless, the patient did not seek treatment because he did not have a way of coming to [facility] for a few days. He did present himself to the hospital on 26 of February with a swollen head with a crusty scab developing and areas of early infection and hematoma. Because of the extent of the laceration and the complexity of it, the patient was admitted on my service with consultations for the hospitalist group for management. Once the patient was completely anesthetized, we positioned the patient in the appropriate position to allow for me to repair the laceration. Prior to doing this, a time-out was taken to ensure that we had Mr. Moe, the correct patient, the correct positioning, all the correct instrumentations for the procedure. Once everyone agreed, the operation began. At this time, the head area was scrubbed with a Betadine brush. Obviously, a lot of bleeding occurred as we removed the scabs and crusty tissue. I then irrigated with copious amounts of normal saline underneath the flap to evacuate any hematoma and debris. I then scrubbed the area once again. At this time, bleeding was controlled and the scalp area was very clean. We then placed sterile dressings. We then cleansed the area with a Betadine scrub and then put sterile dressings around the area and began the closure. Initially, I was able to palpate the skull bone. There was one small area of depression that was noted on the CT scan, but this did not seem to communicate, was more of a crack and a depression rather than a true fracture. Nevertheless, there was no bleeding within the intracranial cavity as demonstrated on [address] scans taken approximately 18 hours apart. At this time, I then made sure that I undermined the tissue around the laceration to allow for relaxation. The initial cut was down to the skull, but I was able to dissect along the periosteal layer to get a good relaxation of the wound. I now used an electrocautery instrument to coagulate and cauterize any bleeders that were in the area. A small scissor was used to straighten up any tissue that was devitalized and very irregular. At this time, we had a relatively nice straight line closure which was approximately 7 inches in length. With the use of a 4-0 Vicryl suture, I was able to place a number of strategically positioned deep sutures. This took care of the subperiosteal layer and was able to close the fibrocutaneous tissues over the skull bone. I now placed a number of subcuticular sutures to get good wound margin closure. Once this was done, we irrigated the area once again, bleeding was now very well controlled. There was no hematoma. The scalp hematoma was evacuated and there was no further bleeding. Now using a combination of 4-0 and 5-0 nylon suture, I was able to place a number of interrupted sutures in this very large laceration and obtained good closure. When all was said and done, we had excellent closure of this 7-inch laceration by both closing the deep galea over the skull bone, the subcuticular tissues as well as the soft tissue of the scalp. At this time, the area was inspected, the scalp area was cleaned. Antibiotic ointment was placed over the suture line and a gauze pressure dressing was placed in the form of a skull cap over the wound to keep pressure. The patient tolerated the surgical procedure extremely well. There was no bleeding. There was no hematoma formation and the incision was well sutured. The patient will be then transferred to the recovery room which would be the intensive care unit on the weekends for postoperative management. Upon completion of the postoperative management phase, he will then be transferred back to the floor for observation and antibiotics. I will see the patient on 02/28/2019 and make arrangements for discharge. The patient will return to my office in approximately 10-12 days for suture removal. The patient will be given my office contact information as well as prescriptions for nonnarcotic pain medication and most likely an antibiotic in the form of clindamycin. Shaheen tolerated the surgery extremely well and I expect an uneventful recovery with a very nice cosmetic result. I attest to the content of the Intraoperative Record and any orders documented therein. Any exception s are noted below.
--- NOTE | 2019-02-28 10:24 | Surgery Progress Note ---
Date of Service At Post op day # 1 Shaheen is doing very well. There is no hematoma formation, the wound looks great and well sutured. I reviewed post op care which includes --keeping it clean, taking the antibiotics and returning to see Dr Null in 10 days for suture removal at [address] [place] [address]. I will give Rx for Clindamycin 600 mg q 8 hrs and suggest Motrin 200 OTC tabs x 2 q 4-6 hrs. I will inform Hospitalist service of D/C so they can insure the tetnus is up to date. From OMS point of view OK for Discharge I reviewed home care, drug use and limit activity levels February 28, 2019 Results & Data Vital Signs (Past 12 Hours) Vital Signs Temp Pulse Pulse Resp BP Pulse Ox Pulse Ox 02/28/19 07:20 36.8 C 95 H 20 115/75 98 02/28/19 04:28 36.9 C 81 14 123/69 98 02/28/19 02:25 36.5 C 73 14 116/75 95 02/28/19 00:05 95 02/27/19 22:57 36.6 C 76 14 118/74 99
[2019-02-28] MEDS: ACETAMINOPHEN 1,000 MG/100 ML VIAL IV PRN (11:37)
[2019-02-28] MEDS ORDERED: DIPHTHERIA/TETANUS TOX ADSORBED ULTRAFINED 0.5 ML SYR/VIAL IM ONE (12:00)
[2019-02-28] MEDS ORDERED: NAPROXEN 250 MG TAB PO ONE (16:12)
--- NOTE | 2019-03-01 13:39 | Discharge Summary ---
Date of Service March 01, 2019 Patient came to ER with open scalp wound that happened about 5-6 days ago He does not remember when! Large gapping wound exposed deep tissue, early infection Head CT--see report Decision to admit based upon discussion with neuro that no need for transfer as no brain bleed with second CT scan To OR for debridment and repair Patient did great was D/C with Clindamycin 600 and follow up with Dr Null in 10 days Admission Exam (Per Admitting) Constitutional + thin, + behavioral limitations, + disheveled and + lethargic Eyes PERRL, conjunctivae normal, anicteric sclerae ENMT external ear and nose normal, oropharynx normal Nose: + external nose abnormality and + septum abnormality Mouth: + dry oral mucous membranes Mallampati Class: II Neck trachea midline, no thyromegaly normal visual inspection and trachea midline Respiratory normal respiratory effort, lungs clear to auscultation Auscultation: lungs clear to auscultation bilaterally Cardiovascular RRR, no murmur, no edema Rate/Rhythm: regular rate Musculoskeletal no cyanosis or clubbing, extremities motor strength 5/5 Head/Neck/Chest: + head abnormal to inspection and + scalp tenderness Spine: normal cervical lordosis Extremities: extremities normal to inspection Gait: normal gait Shoulder: + shoulder abnormal to inspection Hip: + hip abnormal to inpsection Knee: + knee abnormal to inspection Skin + wound Trauma: + evidence of skin trauma, + laceration, + hematoma and + periorbital ecchymosis Neurologic CN's II-XI intact bilaterally and + confused Speech / Cognition: + abnormal cognition Psychiatric Apperance: + disheveled Eye Contact: + fair eye contact Affect: + depressed affect Mood: + depressed mood Estimated Intelligence: + below average estimated intelligence Judgement: + poor judgement Discharge Data Consultations 02/26/19 13:58 ED Decision to Admit Stat 02/26/19 15:23 Consult Hospitalist Routine Procedures Performed Operation Date: 02/27/19 09:30 Actual Procedures p closure of complex scalp laceration right scalp(Right) - Herb Null DMD s Debridement and (Right) - Herb Null DMD Hospital Course (1) Scalp laceration: Scalp laceration debrided by Dr. Null. Wound culture growing coagulase-negative Staphylococcus. Receiving vancomycin. Need to confirm when last tetanus booster administered. (2) Skull fracture: ED provider discussed case with Neurosurgery. No need for surgical intervention. No intracranial hemorrhage on repeat CT. (3) Smoking: Nicotine patch ordered. Smoking cessation counseling. (4) Abnormal toxicological findings: Preliminary urine tox screen positive for amphetamines and MDMA. Confirmation pending. (5) DVT prophylaxis: SCD's. Ambulate. (6) Encounter for consultation: Thank you for this consultation. We will follow the patient with you during their hospital stay. My cell # is [phone]. You can reach a member of the [facility] Medicine Team 16/03 via pager @ [phone].
--- NOTE | 2019-03-01 17:23 | Surgery Progress Note ---
Date of Service I reviewed the scalp wound culture which is positive for MRSA. The patient is on Clindamycin for this scalp wound infection. I will discuss this with him on his post op appointment and develop a treatment plan which will include getting him a PCP to work him up and develop a wellness plan to include better self care, drug use and smoking. March 01, 2019
[2019-03-02 11:15] LABS: Amphetamine Urine, Confirm 4420 NG/ML (CUTOFF=250); Methamphetamine, Ur Confirm >25000 NG/ML (CUTOFF=250)
== END 2019-02-28 18:07 | disposition home or self-care (01) | DRG 580 ==
LOC: ED 10:36 → 3N 15:23

== ENCOUNTER 2021-06-06 14:39 | Observation (INO) ==
[2021-06-06] MEDS ORDERED: ALBUT/IPRATROP 3MG/0.5MG NEB 3 ML VIAL NEB STA (15:14)
[2021-06-06] MEDS ORDERED: methylPREDNISolone 125 MG/2 ML VIAL IV STA (15:14)
[2021-06-06 15:30] LABS: Basophils # (auto) 0.06 K/uL (0-0.2); Basophils % (auto) 0.6 %; Eosinophils # (auto) 0.73 K/uL (0-0.5); Eosinophils % (auto) 7.9 %; Hemoglobin 17.3 g/dL (14.0-18.0); Immature Granulocytes # (auto) 0.01 K/uL (0.00-0.02); Immature Granulocytes % (auto) 0.1 %; Lymphocytes # (auto) 3.38 K/uL (1.2-3.4); Lymphocytes % (auto) 36.6 %; Mean Corpuscular Hemoglobin 31.2 pg (25-34); Mean Corpuscular Hgb Conc 35.3 g/dL (32-36); Mean Corpuscular Volume 88.3 fL (80-100); Mean Platelet Volume 10.2 fL (7.4-10.4); Monocytes # (auto) 0.63 K/uL (0.11-0.59); Monocytes % (auto) 6.8 %; Neutrophils # (auto) 4.43 K/uL (1.4-6.5); Platelet Count 410 K/uL (130-400); RDW Coefficient of Variation 13.2 % (11.5-14.5); RDW Standard Deviation 42.9 fL (36.4-46.3); Red Blood Count 5.55 M/uL (4.7-6.1); White Blood Count 9.24 K/uL (4.8-10.8)
[2021-06-06 15:54] LABS: BUN Creatinine Ratio 11.7 (10-20); Calcium 9.8 mg/dl (8.5-10.1); Creatinine Clr Calc Pharmacy 57.1 ml/min; Est GFR (African American) 65.9 ml/min; Est GFR (Non-African American) 56.9 ml/min
[2021-06-06 15:57] LABS: HCO3 VBG 30 mmol/L; PCO2 VBG 52 mmHg (38-50); PO2 VBG 23 mmHg; pH VBG 7.37 (7.36-7.41)
[2021-06-06 15:59] LABS: Oxygen Saturation VBG < 60.0 %
--- NOTE | 2021-06-06 16:10 | XRay Report ---
XR chest 1V portable HISTORY: Shortness of breath. COMPARISON: Chest 06/16/2015. FINDINGS: The lungs are clear. Cardiac silhouette is normal in size. No pleural effusions. No pneumot horax. IMPRESSION: No acute process. ACT 112: Negative or not required by law. Electronically signed by: Ed Quinn M.D. 06/06/2021 4:09 PM
[2021-06-06 16:58] LABS: Potassium 3.7 mmol/L (3.5-5.1)
[2021-06-06 17:01] LABS: Magnesium 2.3 mg/dl (1.8-2.4)
--- NOTE | 2021-06-06 17:24 | History & Physical Report ---
Date of Service June 06, 2021 Assessment & Plan (1) Status asthmaticus: Plan: Shaheen is a 46-year-old male with a past medical history of asthma, bipolar, tobacco use, and prior methadone dependence who presents to the ER with shortness of breath and wheezing and he was recommended for admission for status asthmaticus. Oxygen levels were 86-88% admission Status asthmaticus 2-3 weeks of wheezing, shortness of breath on exertion, cough without resolution- - MG IV 2g x1 Initial fever/chills at onset, patient denies these in the last 48 hours VBG on admission 7.3 /, not suggestive of respiratory acidosis/alkalosis Creatinine mildly elevated to 1.46 on admission Patient using albuterol inhaler up to every 10 minutes at home, reports that helps briefly but he has not improved Received Solu-Medrol 125 in ER Continue Solu-Medrol 60 mg IV DuoNebs every 4 hours Afebrile, no leukocytosis, CXR with no acute findings. Defer antibiotics at this time Patient using albuterol and somewhat agitated during exam, 94 on room air at rest but desaturates with exertion. Heart rate 1 10-1 30 in room. No leg swelling, D-dimer ordered. CTA deferred for ROLLY, although GFR does not strictly prohibit this. If D-dimer positive follow-up with CTA. (2) COPD (chronic obstructive pulmonary disease): Plan: Potential undiagnosed Patient reports tobacco use at least 1 pack per 3 days, chronic Endorses some wheezing at baseline, some intermittent cough at baseline worsened as noted above Patient has not had PFTs, may have underlying undiagnosed COPD Defer antibiotics at this time as above, recommend follow-up for formal PFTs as outpatient Tobacco cessation recommendations given, (3) Smoking: Plan: Current 1 pack per 3 days Nicotine 21 patch ordered Smoking cessation counseling provided, patient expresses understanding this can worsen his lung disease but does not express a desire to quit (4) Methadone dependence: Plan: Past, has not been on methadone and is over a year. See HPI Patient endorses IV drug use several months ago Recommend counseling services and follow-up as outpatient, unfortunately since like patient has had a poor therapeutic relationship with multiple providers and expresses frustration at these during admission. (5) Illicit drug use: Plan: last use an edible recreational drug several days ago but is unable to identify what took this past week He reports last IV drug use several months ago, does not give specifics but reports "what ever I can get my hands" Denies wounds, infections, injection sites. Conversation somewhat difficult as patient coughs continually when asked specifics about this use, answers generally Concern for intermittent fever/chills, no Fritz spots on exam. Surveillance cultures ordered UDS pending (6) DVT prophylaxis: Plan: Heparin 5000 3 times daily Diet: Regular Disposition: Med/surg with telemetry (7) Bipolar disorder: Plan: reports he has had "some mood stuff "in the past, somewhat evasive during conversation nonspecific Reports he may have had some medication treatment in the past, has not been on any recently and was stopped on his meds after a disagreement with outpatient providers. -Redirect conversation when asked if you would be willing to see a provider here to discuss this, does not think he needs meds at this time, reports he is more concerned about his breathing and just wants to feel better Consider psychiatric consult, will readdress with patient in a.m. Patient denies SI/HI/auditory sensation/verbal hallucinations History of Present Illness Chief Complaint: Shortness of breath Primary Care Provider: Ke Pulido Tracing at the bedside. He reports he has had 2 to 3 weeks of increased cough which began with fever/chills which she has not had today. He reports that he has been using his albuterol inhaler every couple of minutes without significant improvement. He reports he feels tired and "terrible ". Reports he has continued to smoke, smokes about 1 pack of cigarette per 3 days but has had difficulty smoking because of his shortness of breath and cough in the past couple of days. He reports that he has had some coughing illnesses in the past, "but nothing like this before ". Reports he was seen [facility], had a falling out with the provider there due to difficulty with medications and reports he stopped methadone over a year ago because he was not able to make it to an appointment because of kidney stones and pain but providers would not provide him a note. Patient expresses frustration at this, reports he uses recreational substances "not sure what, what ever I can get "which he last ate "something a couple days ago, not sure what it was exactly ". Denies IV drug use in the past couple of days/weeks, endorses IV drug use several months ago "what ever I could get ". When asked if he is interested in remaining abstinent from substances replies that he just wants to get better from coughing today. When asked if he has been on psychiatric medications in the past replies "may be, yes, no. Nothing big. "But cannot verbalize what he was on or for what diagnosis. Has not had PFTs, reports that he has asthma and wheezes intermittently and a history of smoking, but has not had follow-up for this recently. Denies sputum production/purulent sputum. Denies chest pain, chest pressure. Denies infection/skin wounds. Medical History: Reviewed, endorses asthma in past drug abuse. Endorses past hypertension, no longer on medication as he was told he did not actually of this diagnosis by past provider Medications: Reviewed. Denies any home medication, past history of methadone more than 1 year ago and past antihypertensive that he cannot member the name of but reports that he was told he did not actually need it more than a year ago. Surgical History: Reviewed. Allergies: Reviewed. "Not sure." Social History: Tobacco, 1pack per 3 days. EtoH: Denies. Recreational: A few days, 'ate it not sure what it was.' Few months ago 'whatever I could get.' Past methadone, prior Dr. Christian. No use >1 year. Code Status: Full code. Allergies Allergy/AdvReac Type Severity Reaction Status Date / Time Penicillins AdvReac Unknown Hives Verified 03/15/19 12:39 Home Medications Medication Instructions Recorded Confirmed Type naproxen sodium 220 mg tablet 220 mg PO Q12H PRN 02/26/19 03/15/19 History (Aleve) Past Med/Surg History Medical History (Updated 06/06/21 @ 18:30 by Mu Soriano MD) Asthma Bipolar disorder Mass of right side of neck Methadone dependence Family History Other No significant family history Social History Smoking Status: Current every day smoker Tobacco Type: Cigarettes Second Hand Exposure: Yes; Hx Alcohol Use: Yes Alcohol type: hard liquor Hx Substance Use: Yes Last Used Substance: Unknown Substance Use Type Other:: Patient states, "Whatever I can get my hands on." Preferred Language: Japanese Communication Ability: Impaired Renal Dietitian Required: No Beliefs That Will Affect Care: None marital status: Single Current Living Situation: Alone current occupational status: unemployed Feels Safe at Home: Yes Assistive Devices: None Review of Systems Review of Systems: Constitutional: As noted in HPI Eyes: Denies vision change ENT: Denies ear pain, sore throat, sinus pain Cardiovascular: Denies Chest pain, chest pressure, palpitations, extremity swelling Respiratory: As noted in HPI Gastrointestinal: Denies abdominal pain, nausea, vomiting, constipation, diarrhea Genitourinary: Denies dysuria, urinary frequency Musculoskeletal: Denies acute focal weakness, muscle aches/pain, joint aches/pain Integumentary:Denies acute rash, lesions, bruising Neurological: Denies headache, numbness, tingling, focal weakness Physical Exam Physical Exam: General: A&Ox3. NAD. Cooperative. Thought process linear, mood "fine" affect energetic with mild psychomotor agitation. HEENT: Atraumatic, normocephalic. Visual acuity grossly intact.Pupils equal and reactive to light and accommodation. Hearing grossly intact. Pulm: CTAB A&P. -wheezes, -rales, -rhonchi. Symmetrical chest rise. No increase work of breathing. No respiratory distress. Cardiac: RRR, -mrg. Radial pulses intact and symmetrical. Abdominal: Nontender, nondistended, soft. BS present. Extremities: Extremities warm, dry. No leg swelling/asymmetry/edema. Business Unit Leader strength, ankle dorsiflexion/plantar flexion, hip flexion, elbow flexion/ext ension, shoulder flexion/extension/internal rotation/external rotation 5/5 bilaterally without asymmetry. Results & Data Results & Data ([facility]) Vital Signs (Past 12 Hours) Vital Signs Temp Pulse Pulse Resp BP BP Pulse Ox 06/06/21 17:00 98 H 22 125/81 100 06/06/21 16:00 106 H 17 99 06/06/21 15:32 102 H 24 92 06/06/21 15:14 126 H 18 94 06/06/21 15:06 132 H 28 H 138/97 92 06/06/21 14:51 36.6 C 112 H 16 138/103 H 99 PG Care Time/CCT Total # of Minutes Spent Total Time Spent with Patient: Total time spent is greater than 50% in coordination of care (as documented) at patient's floor/unit and/or counseling patient: Coding Level of Care Code INT OBSERVATION CARE 70M LVL 3 Diagnoses Status asthmaticus J45.902 Smoking F17.200 Methadone dependence F11.20 DVT prophylaxis Z29.9 COPD (chronic obstructive pulmonary disease) J44.9 Illicit drug use F19.90 Bipolar disorder F31.9
[2021-06-06] MEDS: ALBUT/IPRATROP 3MG/0.5MG NEB 3 ML VIAL INH SCH ×2 (19:09→22:37)
--- NOTE | 2021-06-06 19:35 | Emergency Department Note ---
History of Present Illness General Chief Complaint: Respiratory Problems Stated Complaint: SOB Time Seen by Provider: 06/06/21 15:03 History of Present Illness Provider Complaint: shortness of breath and "asthma attack" Onset (ago): day(s) (1) Severity: severe Consistency/Duration: + constant Relieved By: + bronchodilators Exacerbated By: + exertion and + coughing Context: + recent illness; no medication noncompliance Known history of: asthma Associated symptoms: + cough, + wheezing and + sputum production; no chest pain, no pain with inspiration, no fever, no orthopnea, no lower extremity pain, no polyuria, no polydipsia, no palpitations, no hemoptysis, no diaphoresis, no syncope, no abdominal pain, no rash or no lightheadedness Treatment prior to arrival: bronchodilator (2 duonebs via EMS) HPI Narrative: EMS reported that the patient was having an oxygen saturation in the mid to high 80s prior to their 2 DuoNeb administrations. Related Data Home oxygen amount: none Home Medications Medication Instructions Recorded Confirmed Type No Known Home Medications 06/06/21 06/06/21 History Allergies Allergy/AdvReac Type Severity Reaction Status Date / Time Penicillins AdvReac Unknown Hives Verified 06/06/21 19:03 Past Med/Surg History Medical History (Updated 06/06/21 @ 19:46 by Martinez Morrow) Asthma Bipolar disorder Mass of right side of neck Methadone dependence No pertinent family history Surgical History (Updated 06/06/21 @ 19:31 by Martinez Morrow) No pertinent past surgical history Family History Other No significant family history Social History Smoking Status: Current every day smoker Tobacco Type: Cigarettes Second Hand Exposure: Yes; Hx Alcohol Use: Yes Alcohol type: hard liquor Hx Substance Use: Yes Last Used Substance: Unknown Substance Use Type Other:: Patient states, "Whatever I can get my hands on." Preferred Language: Luxembourgish Communication Ability: Impaired Cast Associate Required: No Beliefs That Will Affect Care: None marital status: Single Current Living Situation: Alone current occupational status: unemployed Feels Safe at Home: Yes Assistive Devices: None Review of Systems A total of 10 systems reviewed and were otherwise negative Physical Exam Vital Signs: Vital Signs - 24 hr 06/06/21 14:51 06/06/21 15:06 06/06/21 15:14 Temperature 36.6 C Temperature Source Oral Pulse Rate 112 H 126 H Pulse Rate [Right Finger] 132 H Pulse Rhythm [Righ t Finger] Respiratory Rate 16 28 H 18 Respiratory Effort / Characteristics Blood Pressure 138/103 H Blood Pressure [Ri ght Arm] 138/97 Blood Pressure Symone n 114 Blood Pressure Symone n [Right Arm] 110 Blood Pressure Pos ition [Right Arm] Pulse Oximetry 99 92 94 Oxygen Delivery Me thod Room Air Room Air Sepsis Recent Feve r Within 48 Hours No Sepsis New/Unexpla ined Change in Men gabriel Status N/A Sepsis Action Take n by Nursing No Action Required 06/06/21 15:32 06/06/21 16:00 06/06/21 17:00 Temperature Temperature Source Pulse Rate 102 H 106 H 98 H Pulse Rate [Right Finger] Pulse Rhythm [Righ t Finger] Respiratory Rate 24 17 22 Respiratory Effort / Characteristics Blood Pressure 125/81 Blood Pressure [Ri ght Arm] Blood Pressure Symone n 95 Blood Pressure Symone n [Right Arm] Blood Pressure Pos ition [Right Arm] Pulse Oximetry 92 99 100 Oxygen Delivery Me thod Room Air Sepsis Recent Feve r Within 48 Hours Sepsis New/Unexpla ined Change in Men gabriel Status Sepsis Action Take n by Nursing 06/06/21 18:18 06/06/21 19:09 Temperature Temperature Source Pulse Rate Pulse Rate [Right Finger] 110 H 93 H Pulse Rhythm [Righ t Finger] Regular Respiratory Rate 24 16 Respiratory Effort / Characteristics Non-Labored Sponta neous Blood Pressure Blood Pressure [Ri ght Arm] 109/83 Blood Pressure Symone n Blood Pressure Symone n [Right Arm] 91 Blood Pressure Pos ition [Right Arm] Lying Pulse Oximetry 94 90 Oxygen Delivery Me thod Room Air Room Air Sepsis Recent Feve r Within 48 Hours Sepsis New/Unexpla ined Change in Men gabriel Status Sepsis Action Take n by Nursing Physical Exam: Physical Exam GENERAL: He is oriented to person, place, and time. He appears well-developed and well-nourished. He does not appear distressed. HENT: Exam performed. - Head: Normocephalic and atraumatic. - Right Ear: External ear normal. No mastoid tenderness. - Left Ear: External ear normal. No mastoid tenderness. - Mouth/Throat: The oropharynx is clear and moist. No trismus in the jaw. No dental abscesses or uvula swelling. No oropharyngeal exudate or tonsillar abscesses. EYES: Conjunctivae and EOM are normal. Pupils are equal, round, and reactive to light. Right eye exhibits no discharge. Left eye exhibits no discharge. No scleral icterus. NECK: Normal range of motion. Neck supple. No JVD present. No spinous process tenderness present. No carotid bruit present. No rigidity. No tracheal deviation and normal range of motion present. No Brudzinski's sign and no Kernig's sign noted. CV: Normal rate, regular rhythm, normal heart sounds and intact distal pulses. There is no peripheral edema. Palpable radial pulses bue. PULM/CHEST: Diffuse expiratory wheezes bilaterally. ABD: The abdomen is soft. Bowel sounds are normal. He has no distension. No mass is present. There is no tenderness. There is no rebound, no guarding, no Marie's sign and no tenderness at McBurney's point. Rovsig negative. MUSC/SKEL: Normal range of motion. There is no peripheral edema, tenderness or deformity. LYMPH: No cervical adenopathy. NEURO: He is alert and oriented to person, place, and time. He has normal strength. No cranial nerve deficit or sensory deficit. Coordination and gait normal. GCS eye subscore is 4. GCS verbal subscore is 5. GCS motor subscore is 6. Cerebellar tests wnl. SKIN: Skin is warm and dry. He is not diaphoretic. PSYCH: He has a normal mood and affect. Behavior is normal. Judgment and thought content normal. Course Course 1503: The patient was evaluated in room C10. A complete history and physical exam was performed Cardiac monitoring: An order was placed for continuous cardiac monitoring. The monitor shows a rate of 90 with sinus rhythm 1640: Vital signs stable. Labs and imaging within normal limits. Patient has received a total of 3 DuoNeb's and 125 mg Solu-Medrol between his stay in the emergency department to this point and his EMS trip. Patient is still having diffuse expiratory wheezes and feeling short of breath. [facility]. Administered Medications Albuterol (Albut/Ipratrop 3mg/0.5mg Neb 3 Ml Vial) 3 ml INH Q4R NEELIMA Stop: 07/06/21 18:59 Last Admin: 06/06/21 19:09 Dose: 3 ml Documented by: [id number] Discontinued Medications Albuterol (Albut/Ipratrop 3mg/0.5mg Neb 3 Ml Vial) 3 ml NEB NOW STA Stop: 06/06/21 15:15 Last Admin: 06/06/21 15:34 Dose: 3 ml Documented by: [id number] Methylprednisolone (Methylprednisolone 125 Mg/2 Ml Vial) 125 mg IV NOW STA Stop: 06/06/21 15:15 Last Admin: 06/06/21 15:33 Dose: 125 mg Documented by: [id number] Medical Decision Making Laboratory Data Result diagrams: 06/06/21 14:55 06/06/21 16:36 Lab Results 06/06/21 06/06/21 06/06/21 Range/Units 14:55 14:55 15:30 WBC 9.24 (4.8-10.8) K/uL RBC 5.55 (4.7-6.1) M/uL Hgb 17.3 (14.0-18.0) g/dL Hct 49.0 (42-52) % MCV 88.3 (80-100) fL MCH 31.2 (25-34) pg MCHC 35.3 (32-36) g/dL RDW Std Deviation 42.9 (36.4-46.3) fL RDW Coeff of [place] 13.2 (11.5-14.5) % Plt Count 410 H (130-400) K/uL MPV 10.2 (7.4-10.4) fL Immature Gran % (Auto) 0.1 % Neut % (Auto) 48.0 % Lymph % (Auto) 36.6 % [place] % (Auto) 6.8 % Eos % (Auto) 7.9 % Baso % (Auto) 0.6 % Neut # (Auto) 4.43 (1.4-6.5) K/uL Lymph # (Auto) 3.38 (1.2-3.4) K/uL [place] # (Auto) 0.63 H (0.11-0.59) K/uL Eos # (Auto) 0.73 H (0-0.5) K/uL Baso # (Auto) 0.06 (0-0.2) K/uL Immature Gran # (Auto) 0.01 (0.00-0.02) K/uL VBG pH (7.36-7.41) VBG pCO2 (38-50) mmHg VBG pO2 mmHg VBG HCO3 mmol/L VBG O2 Saturation % VBG Base Excess mEq/L Barometric Pressure mm/Hg Sodium 136 (136-145) mmol/L Potassium (3.5-5.1) mmol/L Chloride 104 (98-107) mmol/L Carbon Dioxide 28 (21-32) mmol/L Anion Gap 4.0 (3-11) BUN 17 (7-18) mg/dl Creatinine 1.46 H (0.6-1.4) mg/dl Est Cr Clr Drug Dosing 57.1 ml/min Est GFR ( Amer) 65.9 ml/min Est GFR (Non-Af Amer) 56.9 ml/min BUN/Creatinine Ratio 11.7 (10-20) Glucose 95 (70-99) mg/dl Calcium 9.8 (8.5-10.1) mg/dl Magnesium (1.8-2.4) mg/dl COVID-19 Eval Order Covid19 at [facility] SARS-CoV-2 (PCR) (Negative) 06/06/21 06/06/21 06/06/21 Range/Units 15:30 15:43 16:36 WBC (4.8-10.8) K/uL RBC (4.7-6.1) M/uL Hgb (14.0-18.0) g/dL Hct (42-52) % MCV (80-100) fL MCH (25-34) pg MCHC (32-36) g/dL RDW Std Deviation (36.4-46.3) fL RDW Coeff of [place] (11.5-14.5) % Plt Count (130-400) K/uL MPV (7.4-10.4) fL Immature Gran % (Auto) % Neut % (Auto) % Lymph % (Auto) % [place] % (Auto) % Eos % (Auto) % Baso % (Auto) % Neut # (Auto) (1.4-6.5) K/uL Lymph # (Auto) (1.2-3.4) K/uL [place] # (Auto) (0.11-0.59) K/uL Eos # (Auto) (0-0.5) K/uL Baso # (Auto) (0-0.2) K/uL Immature Gran # (Auto) (0.00-0.02) K/uL VBG pH 7.37 (7.36-7.41) VBG pCO2 52 H (38-50) mmHg VBG pO2 23 mmHg VBG HCO3 30 mmol/L VBG O2 Saturation < 60.0 % VBG Base Excess 3.0 mEq/L Barometric Pressure 730.8 mm/Hg Sodium (136-145) mmol/L Potassium 3.7 (3.5-5.1) mmol/L Chloride (98-107) mmol/L Carbon Dioxide (21-32) mmol/L Anion Gap (3-11) BUN (7-18) mg/dl Creatinine (0.6-1.4) mg/dl Est Cr Clr Drug Dosing ml/min Est GFR ( Amer) ml/min Est GFR (Non-Af Amer) ml/min BUN/Creatinine Ratio (10-20) Glucose (70-99) mg/dl Calcium (8.5-10.1) mg/dl Magnesium 2.3 (1.8-2.4) mg/dl COVID-19 Eval Order SARS-CoV-2 (PCR) NEGATIVE (Negative) Imaging Data Radiologist's Impression: Chest X-Ray 06/06/21 15:14 XR chest 1V portable HISTORY: Shortness of breath. COMPARISON: Chest 06/16/2015. FINDINGS: The lungs are clear. Cardiac silhouette is normal in size. No pleural effusions. No pneumothorax. IMPRESSION: No acute process. ACT 112: Negative or not required by law. Electronically signed by: Ed Quinn M.D. 06/06/2021 4:09 PM MDM Narrative Vital signs stable. Labs and imaging within normal limits. Patient has received a total of 3 DuoNeb's and 125 mg Solu-Medrol between his stay in the emergency department to this point and his EMS trip. Patient is still having diffuse expiratory wheezes and feeling short of breath. [facility]. Impression & Plan Status asthmaticus Discharge Plan Visit Data Chief Complaint: Respiratory Problems Stated Complaint: SOB ED Provider: Martinez Morrow Discharge Problem: Status asthmaticus Patient Disposition: Being Evaluated by Hospitalist Forms Stand Alone Forms: [facility] Prescriptions Prescriptions: No Action No Known Home Medications RF: 0 Referrals Referrals: Ke Pulido MD [Primary Care Provider] -
[2021-06-06 21:18] LABS: D Dimer 190 ug/L FEU (0-500)
[2021-06-06] MEDS: NICOTINE 21 MG/24 HR TDSY TD SCH (21:46)
[2021-06-06] MEDS: MAGNESIUM SULFATE / D5W 1 GM/100 ML BAG IV SCH (21:47)
[2021-06-06] MEDS ORDERED: SODIUM CHLORIDE 0.9% 1000ML 1,000 ML IV ONE (22:27)
[2021-06-06] MEDS ORDERED: ALUMINUM/MAGNESIUM SUSP 30 ML UDC PO PRN (22:27)
[2021-06-06] MEDS ORDERED: ACETAMINOPHEN 325 MG TAB PO PRN (22:27)
[2021-06-06] MEDS ORDERED: POLYETHYLENE (MIRALAX) 17 GM PACK PO PRN (22:27)
[2021-06-06] MEDS: HEPARIN SOD 5,000 UNIT/0.5 ML VIAL SQ SCH (23:26)
[2021-06-07] MEDS: MAGNESIUM SULFATE / D5W 1 GM/100 ML BAG IV SCH (00:29)
[2021-06-07] MEDS: ALBUT/IPRATROP 3MG/0.5MG NEB 3 ML VIAL INH SCH ×5 (03:41→19:01)
[2021-06-07 07:55] LABS: Hematocrit (blood only) 42.7 % (42-52); Hemoglobin 14.9 g/dL (14.0-18.0); Immature Granulocytes # (auto) 0.02 K/uL (0.00-0.02); Immature Granulocytes % (auto) 0.2 %; Lymphocytes # (auto) 1.83 K/uL (1.2-3.4); Lymphocytes % (auto) 17.7 %; Mean Corpuscular Hgb Conc 34.9 g/dL (32-36); Mean Platelet Volume 9.9 fL (7.4-10.4); Monocytes # (auto) 0.38 K/uL (0.11-0.59); Monocytes % (auto) 3.7 %; Neutrophils # (auto) 8.09 K/uL (1.4-6.5); Neutrophils % (auto) 78.4 %; Platelet Count 367 K/uL (130-400); RDW Coefficient of Variation 13.1 % (11.5-14.5); White Blood Count 10.32 K/uL (4.8-10.8)
[2021-06-07] MEDS: HEPARIN SOD 5,000 UNIT/0.5 ML VIAL SQ SCH (08:10)
[2021-06-07 08:23] LABS: BUN Creatinine Ratio 15.9 (10-20); Calcium 9.3 mg/dl (8.5-10.1); Creatinine Clr Calc Pharmacy 71.2 ml/min; Est GFR (African American) 86.1 ml/min; Est GFR (Non-African American) 74.3 ml/min; Potassium 3.9 mmol/L (3.5-5.1)
[2021-06-07] MEDS ORDERED: methylPREDNISolone 125 MG/2 ML VIAL IV SCH (09:00)
[2021-06-07 10:42] LABS: Amphetamines+Metham, Urine Neg (Neg); Barbiturates, Urine Neg (Neg); Benzodiazepine, Urine Neg (Neg); Cocaine, Urine Pos (Neg); MDMA (Ecstacy), Urine Neg (Neg); Methadone, Urine Neg (Neg); Opiate, Urine Neg (Neg); Phencyclidine, Urine Neg (Neg)
[2021-06-07] MEDS ORDERED: methylPREDNISolone 60 MG in SYRINGE 0 ML IV SCH (11:15)
[2021-06-07] MEDS: NICOTINE 21 MG/24 HR TDSY TD SCH (12:50)
--- NOTE | 2021-06-07 18:24 | Hospitalist Progress Note ---
Date of Service June 07, 2021 Assessment & Plan (1) Status asthmaticus: Plan: Shaheen is a 46-year-old male with a past medical history of asthma, bipolar, tobacco use, and prior methadone dependence who presents to the ER with shortness of breath and wheezing and he was recommended for admission for status asthmaticus. Oxygen levels were 86-88% admission Status asthmaticus 2-3 weeks of wheezing, shortness of breath on exertion, cough without resolution - MG IV 2g x1 on admission Initial fever/chills at onset, patient denies these in the last 48 hours VBG on admission 7.3 /, not suggestive of respiratory acidosis/alkalosis Creatinine mildly elevated to 1.46 on admission Patient using albuterol inhaler up to every 10 minutes at home, reports that helps briefly but he has not improved Received Solu-Medrol 125 in ER Convert Solu-Medrol to prednisone tomorrow, short 5-day taper DuoNebs every 4 hours Afebrile, no leukocytosis, CXR with no acute findings. Defer antibiotics at this time Patient improved today. Discussed effect of smoking on his asthma, and potential for COPD. Agreeable to PFTs and follow-up as outpatient. Discussed with case management. (2) COPD (chronic obstructive pulmonary disease): Plan: Potential undiagnosed Patient reports tobacco use at least 1 pack per 3 days, chronic Endorses some wheezing at baseline, some intermittent cough at baseline worsened as noted above Patient has not had PFTs, may have underlying undiagnosed COPD Defer antibiotics at this time as above, recommend follow-up for formal PFTs as outpatient Tobacco cessation recommendations given, planPFTs as above (3) Smoking: Plan: Current 1 pack per 3 days Nicotine 21 patch ordered Smoking cessation counseling provided, patient expresses understanding this can worsen his lung disease but does not express a desire to quit (4) Methadone dependence: Plan: Past, has not been on methadone and is over a year. See HPI Patient endorses IV drug use several months ago Recommend counseling services and follow-up as outpatient, unfortunately since like patient has had a poor therapeutic relationship with multiple providers and expresses frustration at these during admission. Declines counseling services/psychiatric evaluation/anxiety depression treatment at this time (5) Illicit drug use: Plan: last use an edible recreational drug several days ago but is unable to identify what took this past week He reports last IV drug use several months ago, does not give specifics but reports "what ever I can get my hands" Denies wounds, infections, injection sites. Conversation somewhat difficult as patient coughs continually when asked specifics about this use, answers generally Concern for intermittent fever/chills, no Fritz spots on exam. Surveillance cultures ordered UDS positive for cocaine. Patient reports he ingested substances a few days ago and was not sure what all of it was "could be". Precontemplative (6) DVT prophylaxis: Plan: Heparin 5000 3 times daily Diet: Regular Disposition: Med/surg with telemetry (7) Bipolar disorder: Plan: See above, declines treatment and psychiatric evaluation at this time Denies SI/HI, no auditory/visual hallucinations. Admission and Anticipated Discharge Date Admission Date: June 06, 2021 Subjective Tray seen at the bedside today. He reports he feels "so much better "than yesterday. He reports he feels like his breathing is greatly improved and while he still having some wheezing and cough is 85 to 90% better. Patient reports that he has had a difficult relationship with providers in the past, and has had some success with SSRI/methadone in the past but "does not do well with long- term things ". Discussed reestablishing with a primary care for follow-up, offered mental health services and potential medications with warm handoff, and discussed pulmonary status and potential for PFTs and follow-up. Patient agre eable to PFTs, is not sure where he would go for primary care [place] in [place] uses the van and has to be within walking/bicycling distance. Will discuss with case management, patient agreeable to this. Declines mental health/psychiatry evaluation at this time. Review of Systems Review of Systems: Constitutional: No fever/chills/sweats today. Eyes: Denies vision change ENT: Denies ear pain, sore throat, sinus pain Cardiovascular: Denies Chest pain, chest pressure, palpitations, extremity swelling Respiratory: As noted in HPI Gastrointestinal: Denies abdominal pain, nausea, vomiting, constipation, diarrhea Genitourinary: Denies dysuria, urinary frequency Musculoskeletal: Denies acute focal weakness, muscle aches/pain, joint aches/pain Integumentary:Denies acute rash, lesions, bruising Neurological: Denies headache, numbness, tingling, focal weakness Physical Exam Physical Exam: General: A&Ox3. NAD. Cooperative. Thought process linear, mood "fine" affect energetic with mild psychomotor agitation. HEENT: Atraumatic, normocephalic. Visual acuity grossly intact.Pupils equal and reactive to light and accommodation. Hearing grossly intact. Pulm: Scattered expiratory wheezes diffusely, greatly improved from prior., - rales, -rhonchi. Symmetrical chest rise. No increased work of breathing. No respiratory distress. Cardiac: RRR, -mrg. Radial pulses intact and symmetrical. Abdominal: Nontender, nondistended, soft. BS present. Extremities: Extremities warm, dry. No leg swelling/asymmetry/edema. Retail Assistant Manager strength, ankle dorsiflexion/plantar flexion, hip flexion, elbow flexion/extension, shoulder flexion/extension/internal rotation/external rotation 5/5 bilaterally without asymmetry. Results & Data Results & Data ([facility]) Vital Signs (Past 12 Hours) Vital Signs Temp Pulse Resp BP Pulse Ox 06/07/21 15:23 115 H 16 94 06/07/21 14:42 36.9 C 116 H 22 122/57 L 90 06/07/21 11:39 89 16 95 06/07/21 10:00 37.2 C 107 H 18 106/61 92 06/07/21 07:35 36.7 C 92 H 18 104/58 L 96 06/07/21 07:12 94 H 16 94 PG Care Time/CCT Total # of Minutes Spent Total Time Spent with Patient: Total time spent is greater than 50% in coordination of care (as documented) at patient's floor/unit and/or counseling patient: Coding Level of Care Code 49931 Subseq Hosp Care Lvl 2 Diagnoses Status asthmaticus J45.42 Asthma persistence: persistent Asthma severity: moderate COPD (chronic obstructive pulmonary disease) J44.9 Smoking F17.200 Methadone dependence F11.20 Illicit drug use F19.90 DVT prophylaxis Z29.9 Bipolar disorder F31.9 (1) Status asthmaticus Asthma persistence: persistent Asthma severity: moderate Qualified Code(s): J45.42 - Moderate persistent asthma with status asthmaticus
--- NOTE | 2021-06-08 06:12 | Discharge Summary ---
Date of Service June 08, 2021 Admission HPI Per Admitting Provider Tracing at the bedside. He reports he has had 2 to 3 weeks of increased cough which began with fever/chills which she has not had today. He reports that he has been using his albuterol inhaler every couple of minutes without significant improvement. He reports he feels tired and "terrible ". Reports he has continued to smoke, smokes about 1 pack of cigarette per 3 days but has had difficulty smoking because of his shortness of breath and cough in the past couple of days. He reports that he has had some coughing illnesses in the past, "but nothing like this before ". Reports he was seen at [facility] for primary care, had a falling out with the provider there due to difficulty with medications and reports he stopped methadone over a year ago because he was not able to make it to an appointment because of kidney stones and pain but providers would not provide him a note. Patient expresses frustration at this, reports he uses recreational substances "not sure what, what ever I can get "which he last ate "something a couple days ago, not sure what it was exactly ". Denies IV drug use in the past couple of days/weeks, endorses IV drug use several months ago "what ever I could get ". When asked if he is interested in remaining abstinent from substances replies that he just wants to get better from coughing today. When asked if he has been on psychiatric medications in the past replies "may be, yes, no. Nothing big. "But cannot verbalize what he was on or for what diagnosis. Has not had PFTs, reports that he has asthma and wheezes intermittently and a history of smoking, but has not had follow-up for this recently. Denies sputum production/purulent sputum. Denies chest pain, chest pressure. Denies infection/skin wounds. Medical History: Reviewed, endorses asthma in past drug abuse. Endorses past hypertension, no longer on medication as he was told he did not actually of this diagnosis by past provider Medications: Reviewed. Denies any home medication, past history of methadone more than 1 year ago and past antihypertensive that he cannot member the name of but reports that he was told he did not actually need it more than a year ago. Surgical History: Reviewed. Allergies: Reviewed. "Not sure." Social History: Tobacco, 1pack per 3 days. EtoH: Denies. Recreational: A few days, 'ate it not sure what it was.' Few months ago 'whatever I could get.' Past methadone, prior Dr. Christian. No use >1 year. Code Status: Full code. Admission Exam Per Admitting Provider General: A&Ox3. NAD. Cooperative. Thought process linear, mood "fine" affect energetic with mild psychomotor agitation. HEENT: Atraumatic, normocephalic. Visual acuity grossly intact.Pupils equal and reactive to light and accommodation. Hearing grossly intact. Pulm: CTAB A&P. -wheezes, -rales, -rhonchi. Symmetrical chest rise. No increase work of breathing. No respiratory distress. Cardiac: RRR, -mrg. Radial pulses intact and symmetrical. Abdominal: Nontender, nondistended, soft. BS present. Extremities: Extremities warm, dry. No leg swelling/asymmetry/edema. [employer] Generating Plant Operator strength, ankle dorsiflexion/plantar flexion, hip flexion, elbow flexion/extension, shoulder flexion/extension/internal rotation/external rotation 5/5 bilaterally without asymmetry. Principal Diagnosis Asthma exacerbation Discharge Exam General: A&Ox3. NAD. Cooperative. Thought process linear, mood "fine" affect energetic with mild psychomotor agitation. HEENT: Atraumatic, normocephalic. Visual acuity grossly intact.Pupils equal and reactive to light and accommodation. Hearing grossly intact. Pulm: Scattered expiratory wheezes diffusely, greatly improved from prior., - rales, -rhonchi. Symmetrical chest rise. No increased work of breathing. No respiratory distress. Cardiac: RRR, -mrg. Radial pulses intact and symmetrical. Abdominal: Nontender, nondistended, soft. BS present. Extremities: Extremities warm, dry. No leg swelling/asymmetry/edema. Power Generating Plant Operator strength, ankle dorsiflexion/plantar flexion, hip flexion, elbow flexion/extension, shoulder flexion/extension/internal rotation/external rotation 5/5 bilaterally without asymmetry. Discharge Data Allergies Allergy/AdvReac Type Severity Reaction Status Date / Time nortriptyline Allergy Unknown Verified 06/06/21 22:18 Penicillins AdvReac Unknown Hives Verified 06/06/21 19:03 Consultations 06/06/21 16:40 ED Decision to Admit Stat Hospital Course (1) Status asthmaticus: Shaheen is a 46-year-old male with a past medical history of asthma, bipolar, tobacco use, and prior methadone dependence who presents to the ER with shortness of breath and wheezing and he was recommended for admission for status asthmaticus. Oxygen levels were 86-88% admission To do as outpatient: 1. Establish with and follow-up with new PCP 2. Full PFTs,? Asthma with possible underlying COPD in the setting of tobacco dependence 3. Continued tobacco and substance abuse support services and cessation. Precontemplative/contemplative during admission 4. Complete 5-day prednisone taper Status asthmaticus 2-3 weeks of wheezing, shortness of breath on exertion, cough without resolution - MG IV 2g x1 on admission Initial fever/chills at onset, patient denies these in the last 48 hours VBG on admission 7.3 / Creatinine mildly elevated to 1.46 on admission, normalized day of discharge Patient using albuterol inhaler up to every 10 minutes at home, reports that helps briefly but he has not improved Received Solu-Medrol 125 in ER Converted to prednisone, short 5-day taper DuoNebs every 4 hours Afebrile, no leukocytosis, CXR with no acute findings. Defer antibiotics Patient improved by time of discharge. Discussed effect of smoking tobacco/illicit substances on his asthma, and potential for COPD. Agreeable to PFTs and follow-up as outpatient. Discussed with case management. (2) COPD (chronic obstructive pulmonary disease): Potential undiagnosed Patient reports tobacco use at least 1 pack per 3 days, chronic Endorses some wheezing at baseline, some intermittent cough at baseline worsened as noted above Patient has not had PFTs, may have underlying undiagnosed COPD Defer antibiotics at this time as above, recommend follow-up for formal PFTs as outpatient Tobacco cessation recommendations given, planPFTs as above (3) Smoking: Current 1 pack per 3 days Nicotine 21 patch ordered Smoking cessation counseling provided, patient expresses understanding this can worsen his lung disease but does not express a desire to quit (4) Methadone dependence: Past, has not been on methadone and is over a year. See HPI Patient endorses IV drug use several months ago Recommend counseling services and follow-up as outpatient, unfortunately since like patient has had a poor therapeutic relationship with multiple providers and expresses frustration at these during admission. Declines counseling services/psychiatric evaluation/anxiety depression treatment at this time (5) Illicit drug use: last use an edible recreational drug several days ago but is unable to identify what took this past week He reports last IV drug use several months ago, does not give specifics but reports "what ever I can get my hands" Denies wounds, infections, injection sites. Conversation somewhat difficult as patient coughs continually when asked specifics about this use, answers generally Concern for intermittent fever/chills, no Fritz spots on exam. Surveillance cultures ordered UDS positive for cocaine. Patient reports he ingested substances a few days ago and was not sure what all of it was "could be". Precontemplative, declines psych/substance abuse/support services during admission and on discharge (6) DVT prophylaxis: Heparin 5000 3 times daily Diet: Regular Disposition: Med/surg with telemetry (7) Bipolar disorder: See above, declines treatment and psychiatric evaluation at this time Denies SI/HI, no auditory/visual hallucinations. Total Time Total Time Spent Total Time Spent (In Minutes): Total time spent preparing discharge day of discharge 35 minutes including direct clinical care, documentation, and review of labs and images. Discharge Plan Discharge Items Patient Disposition: Home - Self-Care Reason For Visit: ASTHMA EXACERBATION Discharge Diagnosis: Asthma exacerbation Activity: Resume your previous activity Non-emergency contact: Primary Care Provider Call non-emergency contact if: you have any medication questions, your symptoms worsen, your pain is not controlled and you have a fever Follow-up/Referrals: Telly Phoenix CRNP [Nurse Practitioner] - 06/20/21 10:20 am (New primary care provider) Diet: Regular Addtl Attending Provider Instructions: You are seen in the hospital for a acute asthma exacerbation. You clinically improved with steroid medications. Antibiotics were not indicated, there were no signs of a bacterial infection. You have been prescribed a steroid taper as noted below. You have been prescribed a steroid medication for your breathing, prednisone. Please take prednisone as follows: Prednisone 50 mg on 06/09 Prednisone 40 mg on Prednisone 30 mg on Prednisone 20 mg on Prednisone 10 mg on You have been prescribed an albuterol inhaler. In the future you may use this for asthma exacerbations and wheezing. You may use this up to 2 puffs every 4 hours as needed. If you need this more than 4 times in a day please contact your primary care provider. An appointment has been arranged for you with a a new primary care provider Telly Phoenix. You have had a appointment made for 06/20/2021 at 10:20 AM. If you need to change this appointment please call his office directly at the number above. PFTs (lung function tests) have been ordered for you in order to check your asthma and for COPD. Based on these results additional inhalers may be needed to help control your asthma in the future. Please discuss these tests with Telly at your follow-up appointment. If you develop any new or worsening symptoms including fever, chills, sweats, chest pain, chest pressure, difficulty breathing, uncontrolled nausea/vomiting, rash, wheezing, passing out or nearly passing out, bleeding, black/bloody bowel movements, or other new or concerning symptoms please call your primary care physician at [phone], or call 911 for re-evaluation in the emergency department if you are very concerned. Pending Studies at Discharge: Yes (PFTs) Stand-Alone Forms: My [facility], Smoking Cessation Medications and DC Order Prescriptions: New prednisone 20 mg tablet See Rx Instructions .ROUTE .COMPLEX Qty: 30 RF: 0 albuterol sulfate 90 mcg/actuation HFA aerosol inhaler 2 inh inhalation Q6H PRN (Reason: shortness of breath or wheezing) Qty: 6.7 RF: 2 Discharge Orders: Discharge Order (Routine); Ordered 06/07/21 Ordered By: Geovanny Pearson Admission Data Admit Date/Time: 06/06/21 18:38 Attending Provider: Mu Soriano Admit Provider: Mu Soriano Primary Care Provider: Ke Pulido Other Providers: Mu Soriano Other Interventions: Discharge Summary Assessment (RN) Last Done: 06/07/21 20:24 Coding Level of Care Code 88554 OBS Care - Discharge Diagnoses Status asthmaticus J45.42 Asthma persistence: persistent Asthma severity: moderate COPD (chronic obstructive pulmonary disease) J44.9 Smoking F17.200 Methadone dependence F11.20 Illicit drug use F19.90 DVT prophylaxis Z29.9 Bipolar disorder F31.9
[2021-06-08] MEDS ORDERED: predniSONE 50 MG TAB PO SCH (09:00)
[2021-06-10 08:21] LABS: Cocaine, Urine 2390 ng/mL (<100)
== END 2021-06-07 21:44 | disposition home or self-care (01) ==
LOC: ED 14:39 → 2W 14:39

== ENCOUNTER 2025-02-21 09:05 | Observation (INO) ==
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
[2025-02-21] MEDS: cefTRIAXone SODIUM 2,000 MG/50 ML BAG IV STA (09:31)
[2025-02-21 09:45] LABS: Hematocrit (blood only) 47.8 % (42.0-52.0); Hemoglobin 16.8 g/dl (14.0-18.0); Immature Granulocytes # (auto) 0.02 K/uL (0.01-0.20); Immature Granulocytes % (auto) 0.2 %; Mean Corpuscular Hemoglobin 31.7 pg (25.0-34.0); Mean Corpuscular Volume 90.2 fL (80.0-100.0); Platelet Count 374 K/uL (130-400); RDW Standard Deviation 44.4 fL (36.4-46.3); Red Blood Count 5.30 M/uL (4.70-6.10); White Blood Count 8.59 K/ul (4.8-10.8)
[2025-02-21 10:03] LABS: Alanine Aminotransferase 14.0 U/L (7-52); Albumin Globulin Ratio 1.5 (0.9-2); Alkaline Phosphatase 69.0 U/L (34-104); Anion Gap 10.0 (3-11); Bilirubin,Total 1.0 mg/dl (0.2-1.0); Blood Urea Nitrogen 16.0 mg/dl (6-23); Calcium 9.9 mg/dl (8.6-10.3); Carbon Dioxide 25.0 mmol/L (21-32); Chloride 101.0 mmol/L (98-107); Creatinine Clr Calc Pharmacy 71.4 ml/min; Globulin 3.3 gm/dl (2.5-4.0); Glucose 98.0 mg/dl (70-99(Fasting)); Lipase 11.0 U/L (11-82); Potassium 3.9 mmol/L (3.5-5.1); Sodium 136.0 mmol/L (136-145); Total Protein 8.3 gm/dl (6.0-8.3)
[2025-02-21 10:09] LABS: Appearance Urine Clear (Clear); Glucose Urine UA Negative (Negative)
[2025-02-21] MEDS: OPTIRAY 320 100ml IV ONE (10:23)
--- NOTE | 2025-02-21 10:46 | CT Scan Report ---
ABDOMEN AND PELVIS CT WITH IV CONTRAST CT DOSE: 818.53 mGy.cm HISTORY: Acute left lower quadrant abdominal pain llq abd pain TECHNIQUE: Multiaxial CT images of the abdomen and pelvis were performed following the IV administrat ion of 94 cc of Optiray, A dose lowering technique was utilized adhering to the principles of ALARA. COMPARISON STUDY: None. FINDINGS: Clear lung bases. No pneumatosis or pneumoperitoneum. Unremarkable spleen, pancreas, gallbl adder and adrenal glands. Liver is within normal limits. Patency of the hepatic and portal veins. There are a few 2 to 3 mm nonobstructing calculi noted within the kidneys. A few renal cysts are also noted measuring up to 2 cm on the right. No ureteral calculi or hydronephrosis. Indeterminate interm ediate density 7 mm lesion in the lateral interpolar left kidney, too small to characterize. Urinary bladder wall thickening with partial distention. Mild prostatomegaly. Aorta and IVC are unremarkable. Nonspecific left inguinal lymphadenopathy, measuring up to 2.7 x 1.2 cm. No bowel junction or bowel wall thickening. Colonic diverticulosis without acute diverticulitis. Subc entimeter appendicolith. No CT evidence of acute appendicitis. Small fat filled umbilical hernia, [place] stases of 1.6 cm. Postoperative changes of prior left inguinal hernia repair. There is mild asymmetri c lateral left abdominal wall deep subcutaneous edema abutting the extra oblique musculature. No disc rete fluid collection. No acute fracture. IMPRESSION: 1. No acute intra-abdominal or intrapelvic abnormality. 2. Mild asymmetric lateral left abdominal wall subcutaneous edema may represent contusion versus cell ulitis. 3. No abscess. 4. Nonobstructing bilateral nephrolithiasis. 5. Mild nonspecific left inguinal lymphadenopathy may be reactive. ACT 112: Negative or not required by law. The above report was generated using voice recognition software. It may contain grammatical, syntax o r spelling errors. Electronically signed by: Sharad Morfin M.D. 02/21/2025 10:45 AM
[2025-02-21] MEDS ORDERED: VANCOMYCIN CONSULT ACTIVE PRN (11:34)
[2025-02-21] MEDS: VANCOMYCIN HCL 1,750 MG in SODIUM CHLORIDE 0.9% 500 ML IV ONE (11:51)
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
[2025-02-21 14:10] LABS: Lyme Screen Rflx Confirmation Positive (Negative)
[2025-02-21 14:48] LABS: Lyme Ab IgG 2nd Tier Confirm Positive (Negative)
[2025-02-21 14:50] LABS: Lyme Ab IgM 2nd Tier Confirm Positive (Negative)
[2025-02-21] MEDS ORDERED: ONDANSETRON INJ 2 MG/ML 2 ML VIAL IV PRN (15:13)
[2025-02-21] MEDS ORDERED: MAGNESIUM HYDROXIDE SUSP 30 ML UDC PO PRN (15:13)
[2025-02-21] MEDS ORDERED: POLYETHYLENE (MIRALAX) 17 GM PACK PO PRN (15:13)
[2025-02-21] MEDS ORDERED: ALUMINUM/MAGNESIUM SUSP 30 ML UDC PO PRN (15:13)
[2025-02-21] MEDS: SODIUM CHLORIDE 0.9% 1,000 ML IV SCH (15:25)
[2025-02-21] MEDS: ACETAMINOPHEN 325 MG TAB PO SCH (16:17)
--- NOTE | 2025-02-21 18:50 | Communication Note ---
Date of Service: February 21, 2025 Lyme screen positive including IgM -ordered oral doxycycline Leann/bab smear negative, DNA pending MRSA nares negative
[2025-02-21] MEDS: MELATONIN 3 MG TAB PO PRN (20:05)
[2025-02-21] MEDS: DOXYCYCLINE HYCLATE 100 MG CAP PO SCH (20:05)
[2025-02-22 07:00] VITALS: BP 95/59; PULSE 76; RESP 16; TEMP 98.1; O2SAT 95
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
== END 2025-02-22 12:15 | disposition home or self-care (01) ==
LOC: 3W 09:05 → ED 09:05 → SUATTDRO 13:33 → 3W 15:20